=== PATIENT | female | born 1990 | race Caucasian/White ===

== ENCOUNTER 2024-05-16 13:22 | Outpatient (RCR) | payer MEDICAID, SELFPAY ==
--- NOTE | 2024-05-16 14:05 | PT.OIERPT ---
PT OP Initial Eval Patient Information Visit Reasons: SCOLIOSIS Medical Diagnosis: M41.9 Treatment Dx #1: Difficulty Walking Start of Care: 05/16/24 Smoking Status Smoking Status: Never smoker Initial Assessment Subjective: Pt is a 34 y/o female reports of chronic back pain and difficulty walking since 2 years ago. Pt had back surgery due to severe scoliosis many years ago. Pt has limitation with prolonged standing, walking, chores, self care, work duties, and performing recreational activities. Pt's ambulation is limited with a cane or 4ww. Objective: L/S AROM: all motions are 50% towards end range with pain BLE AROM: all motions are 75 % towards end range BLE MMTs: grossly 3-/5 Gait Observation: 25 ft with step to pattern without AD. Assessment: Pt demonstrate spinal mobility deficits with core weakness leading to difficulty with walking. Pt's gait is non-functional and demonstrate poor posture and overall mobility. Pt will benefit from a power w/c to improve overall independence with ADLs. 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
== END 2024-05-27 23:59 | disposition home or self-care (01) ==
LOC: CPTX 13:22
PROVIDERS: PCP Physician Assistant; Referring Provider Physician Assistant; Visit Provider Physician Assistant
DX: R26.2 Difficulty in walking, not elsewhere classified (principal); R53.1 Weakness; G89.29 Other chronic pain; M54.9 Dorsalgia, unspecified; M41.9 Scoliosis, unspecified
CPT/HCPCS: 97162

== ENCOUNTER → 2024-08-09 | Outpatient (CLI) | payer MEDICAID, SELFPAY ==
--- NOTE | 2024-08-09 12:00 | XR_ITS ---
Examination: MRI brain without intravenous contrast. Date and time of exam: August 09, 2024 1304 hours INDICATIONS: Weakness in the legs numbness in the legs headaches decreased memory over the last week Technique: Multiple axial and sagittal images of the brain obtained. Siemens high-resolution 1.5 Patricia short bore scanners utilized. Sagittal sections, T1-weighted, TR 500, TE 14, are performed. Axial sections proton-density and T2-weighted have been obtained. Inversion recovery axial images, TR 9, 260, TE 111, TI 2500. Diffusion weighted images, axial sections, TR 4800, TE 128, B value 1000 Axial sections, ADC map, TR 4800, TE 128 Findings: Enlargement of the sella turcica is not present. The optic chiasm and infundibular are not remarkable. Prepontine and interpeduncular cisterns are not enlarged. There is no localized enlargement of the medulla or stephen. Fourth ventricle and cerebellar tonsils appear normal in position. No subacute area of hemorrhage density is seen. Mass in the cerebellopontine angle region is not evident. Globes symmetrical. Orbital musculature including medial lateral rectus muscles do not exhibit abnormality. Diffusion-weighted images demonstrate no focus of restricted diffusion. Increased white matter signal punctate foci increased signal in the cerebral white matter Prominent sinusitis Mass effect upon the ventricular system is not identified. Impression: Punctate foci increased signal in the cerebral white matter consistent with demyelinating disease This patient should return for brain MRI post contrast follow-up to exclude metastatic disease
--- NOTE | 2024-08-09 12:30 | XR_ITS ---
Examination: MRI lumbar spine without contrast Date and time of exam: August 09, 2024 1304 hours INDICATIONS: Low back pain radiating down the right side beginning 3 years ago, weakness in the legs Technique: Multiple MRI axial and sagittal sections lumbar spine. Sagittal T2-weighted images, TR 3500, TE 118 T1 weighted transverse sections, TR 688 T8.5, T2-weighted sagittal sections T1 weighted sagittal sections TR 621, TE 30 T2 axial sections, TR 4, 190, TE 84. Findings: Adequate alignment lumbar vertebral bodies Moderate disc narrowing L5-S1 with disc desiccation No lumbar fracture No spondylolisthesis L5-S1 large, 10 mm extruded central disc displacing both the right and left S1 nerve roots and producing mild left L5 ganglionic compression More cephalad levels are unremarkable IMPRESSION: L5-S1 large, 10 mm, extruded central disc displacing the right and left S1 nerve roots and producing mild left L5 ganglionic compression
== END | disposition home or self-care (01) ==
PROVIDERS: PCP Physician Assistant; Referring Provider Physician Assistant; Visit Provider Physician Assistant
DX: R90.82 White matter disease, unspecified (principal); M51.27 Other intervertebral disc displacement, lumbosacral region; G95.20 Unspecified cord compression
CPT/HCPCS: 70551; 72148

== ENCOUNTER 2024-08-13 15:07 | Emergency (ER) | payer MEDICAID, SELFPAY ==
[2024-08-13 15:08] VITALS: BMI 39.4
[2024-08-13 15:36] VITALS: BP 113/75; PULSE 105; RESP 18; TEMP 36.9; O2SAT 97
--- NOTE | 2024-08-13 15:43 | PD.EDANIML ---
ED Animal Bite RME/HPI General Chief Complaint: Animal Bite Stated Complaint: DOG BITE TO LEFT ELBOW ON WEDNESDAY Time Seen by Provider: 08/13/24 15:28 Source: patient Arrival date/time: 08/13/24 15:07 34-year-old female with no known medical history presents to the emergency room with a chief complaint of swelling redness and warmth to her left elbow. Patient states she had a mild dog bite to the left elbow on Wednesday. Patient states there was no big laceration so she decided to not come in but today started feeling warm and tender. Mode of arrival: ambulatory Limitations: no limitations Related Data Previous Rx's ?Medication ?Instructions ?Recorded cephalexin 500 mg capsule 500 mg PO QID #28 caps 11/17/23 acetaminophen 500 mg tablet 500 mg PO QID PRN fever or pain 02/17/24 #20 tabs ibuprofen 800 mg tablet 800 mg PO Q8H PRN pain #20 tabs 02/17/24 amoxicillin 875 mg-potassium 1 tab PO BID 7 days #14 tabs 08/13/24 clavulanate 125 mg tablet Allergies Allergy/AdvReac Type Severity Reaction Status Date / Time chicken derived Allergy Severe Swelling Verified 08/13/24 15:08 of Lip/Tongue/Throat turkey Allergy Severe Swelling Verified 08/13/24 15:08 of Lip/Tongue/Throat pepperoni Allergy Intermediate Rash Uncoded 08/13/24 15:08 Review of Systems Review of Systems Systems Reviewed: All systems reviewed, normal except as documented Constitutional Constitutional: Reports system reviewed and no additional complaints, except as documented, Denies fatigue, Denies fever(s), Denies headache(s) and Denies weakness Eyes Eyes: Reports system reviewed and no additional complaints, except as documented, Denies blurry vision and Denies change in vision ENT Ears, Nose, Mouth, and Throat: Reports system reviewed and no additional complaints, except as documented, Denies otalgia, Denies headache(s), Denies nasal congestion, Denies throat swelling and Denies vertigo Cardiovascular Cardiovascular: Reports system reviewed and no additional complaints, except as documented, Denies chest pain, Denies dyspnea and Denies dyspnea on exertion Respiratory Respiratory: Reports system reviewed and no additional complaints, except as documented, Denies chest congestion, Denies cough, Denies dyspnea, Denies dyspnea on exertion and Denies wheezing Gastrointestinal Gastrointestinal: Reports system reviewed and no additional complaints, except as documented, Denies abdominal pain, Denies cramping, Denies nausea and Denies vomiting Genitourinary Genitourinary: Reports system reviewed and no additional complaints, except as documented Musculoskeletal Musculoskeletal: Reports arthralgias and Reports joint swelling Integumentary/Breasts Skin/Breast: Reports system reviewed and no additional complaints, except as documented and Denies wounds Neurologic Neurologic: Reports system reviewed and no additional complaints, except as documented, Denies confusion, Denies headache(s), Denies lack of coordination, Denies vertigo and Denies weakness Psychiatric Psychiatric: Reports system reviewed and no additional complaints, except as documented, Denies anxiety, Denies confusion, Denies depression, Denies paranoia, Denies suicidal ideation and Denies tactile hallucinations Endocrine Endocrine: Reports system reviewed and no additional complaints, except as documented and Denies fatigue Hematologic/Lymphatic Hematologic/Lymphatic: Reports system reviewed and no additional complaints, except as documented and Denies lymphadenopathy Allergic/Immunologic Allergic/Immunologic: Reports system reviewed and no additional complaints, except as documented, Denies throat swelling, Denies urticaria and Denies wheezing Past Medical History Past Medical History NEUROLOGIC: Negative Neurological Disorders CARDIAC: Negative Cardiac Disorders or Congestive Heart Failure RESPIRATORY: Positive Asthma, Bronchitis and Pneumonia; Negative Chronic Obstructive Pulmonary Disease (COPD) GASTROINTESTINAL: Negative Gastrointestinal Disorders GENITOURINARY: Negative Genitourinary Disorders or Renal Disease REPRODUCTIVE: Positive Previous Pregnancies MUSCULOSKELETAL: Positive Scoliosis ENDOCRINE: Positive Diabetes Mellitus Type 2 and Hypothyroidism; Negative Diabetes Mellitus Type 1 HEMATOLOGIC: Positive Anemia PSYCHO/SOCIAL: Positive Depression, Anxiety and Post Traumatic Stress Disorder OTHER HISTORY: Negative Autoimmune Disease, Blood Transfusions, MRSA, Clostridium Difficile or Cancer Family History FAMILY HISTORY: Positive Family Psychiatric Problems (Mother- anxiety, depression,PTSD), Family Respiratory Disorders (Mother COPD) and Family Cancer (Aunt breast cancer); Negative Family Cardiac Disorders, Family Gastrointestinal Problems, Family Surgery or Family Anesthesia Reaction Surgical History SURGICAL: Negative Cardiac Surgery, Endocrine Surgery, Ear Surgery, Abdominal Surgery, Nephrectomy, Joint Replacement, Neurologic Surgery or Mastectomy Social History SMOKING STATUS: Never smoker ED Exam General Limitations: Present no limitations General appearance: Present alert and in no apparent distress Head Head exam: Present atraumatic Eye Eye exam: Present normal appearance, PERRL and EOMI ENT ENT exam: Present normal exam, normal oropharynx and mucous membranes moist Neck Neck exam: Present normal inspection, full ROM and trachea midline Chest Chest inspection: Present normal inspection and symmetric chest wall rise Respiratory Respiratory exam: Present normal lung sounds bilaterally Cardiovascular Cardiovascular exam: Present regular rate, normal rhythm and normal heart sounds Abdominal Exam Abdominal exam: Present soft and normal bowel sounds Extremities Exam Extremities exam: Present normal inspection and full ROM Expanded Upper Extremity Exam Shoulder exam: Present normal inspection Arm exam: Present normal inspection Elbow exam: Present full ROM, tenderness, swelling and erythema Forearm/Wrist exam: Present normal inspection Hand exam: Present normal inspection Vascular exam: Normal capillary refill Back Exam Back exam: Present normal inspection and full ROM Neurological Exam Neurological exam: Present alert, oriented X3 and CN II-XII intact Psychiatric Psychiatric exam: Present normal affect and normal mood Skin Skin exam: Present warm, dry, intact and normal color Course Quality Measures none Vital Signs Vital signs: Vital Signs Temperature 98.5 F 08/13/24 15:36 Pulse Rate 105 H 08/13/24 15:36 Respiratory Rate 18 08/13/24 15:36 Blood Pressure 113/75 08/13/24 15:36 Pulse Oximetry (%) 97 08/13/24 15:36 Oxygen Delivery Method Room Air 08/13/24 15:36 O2 saturation 97% within normal limits Animal Bite MDM Narrative MDM Narrative:: 34-year-old female with no known medical history presents to the emergency room with a chief complaint of swelling redness and warmth to her left elbow. Patient states she had a mild dog bite to the left elbow on Wednesday. Patient states there was no big laceration so she decided to not come in but today started feeling warm and tender. Patient is hemodynamically stable and in no apparent distress. There is no fever, tachypnea,. Physical examination shows a left elbow that is swollen, warm to the touch and has erythema. There is no pus draining I am able to see the small abrasion that was caused on Wednesday there is no pus draining from it. Antibiotics are sent to the patient's pharmacy patient was discharged and educated to follow-up with primary care provider return to the emergency room for any evidence of worsening signs or symptoms Patient data External records reviewed:: [facility] previous records Clinical information provided by:: patient Social determinants that could affect healthcare access:: none Patient has the following chronic illnesses:: No chronic illness How is presenting disease/condition affected by chronic disease/condition?: no chronic disease Evaluation data The following diagnostics were reviewed and interpreted by me:: lab results and radiology exam(s) Lab and/or radiology exams considered but not ordered:: Labs and radiology exams considered and ordered Interpretation Summary: N/A Medications / Prescriptions Medications or Prescriptions considered but not ordered:: Medication given Medication administrations:: Rx given Consultations Consultation(s) initiated? (list below): No Diagnosis Differential diagnosis animal bite: bite by animal and dog bite Most likely diagnosis given after review of the tests above:: Dog bite Admission Indicated Admission indicated?: not indicated Admission Request Was there a request for admission?: No Disposition Plan Disposition Plan: Discharge Discharge Attestation Discharge Attestation: The patient and all family members were given an opportunity to ask questions and understood the discharge instructions. Discharge instructions specifically effects, indications for sooner follow up or return to the emergency department, and the expected course of current diagnosis. Patient condition: Stable Discharge Plan Plan Patient Disposition: HOME (Self Care) Disposition Comment: Stable Prescriptions/Referrals Prescriptions/Med Rec: New amoxicillin-pot clavulanate 875-125 mg tablet 1 tab PO BID 7 Days Qty: 14 0RF No Action cephalexin 500 mg capsule 500 mg PO QID Qty: 28 0RF ibuprofen 800 mg tablet 800 mg PO Q8H PRN (Reason: pain) Qty: 20 0RF acetaminophen 500 mg tablet 500 mg PO QID PRN (Reason: fever or pain) Qty: 20 0RF Problem List Clinical Impression: Dog bite Patient/Caregiver Discharge Instructions Education Materials: ED Animal Bite (General), ED Dog Bite Additional Instructions: Please follow-up with your primary care provider in the next 24 to 48 hours. Antibiotics are sent to your pharmacy please pick them up and take them as indicated. For any evidence of worsening signs or symptoms return to the emergency room immediately Print Language: Greek Stand Alone Forms: Tamara Award Info., Patient Portal Info Letter PA/PHARMACY ASSOCIATE Supervising Physician PA/MELANIE Supervising Physician: Dr Johnson
== END 2024-08-13 16:09 | disposition home or self-care (01) ==
LOC: SERX 16:35
PROVIDERS: Emergency Provider Emergency Medicine
DX: S51.052A Open bite, left elbow, initial encounter (principal); W54.0XXA Bitten by dog, initial encounter
CPT/HCPCS: 99281

== ENCOUNTER 2024-08-22 14:56 | Emergency (ER) | payer MEDICAID, SELFPAY ==
[2024-08-22 14:57] VITALS: BMI 40.8
[2024-08-22 15:09] VITALS: BP 114/77; PULSE 108; RESP 16; TEMP 37.1; O2SAT 96; BMI 40.8
--- NOTE | 2024-08-22 15:12 | XR_ITS ---
Examination: Venous duplex lower extremity sonogram, bilateral. Date and time of exam: August 22, 2024 1607 hrs. Indications: Bilateral leg swelling and pain years, worse in the right leg beginning this morning Technique: Multiple sonographic images of the deep venous system have been obtained. B-mode/2-D grayscale imaging of vascular structures and Doppler spectral analysis (waveforms) and color performed Both legs are examined. Findings: Deep venous systems do not demonstrate abnormal echogenicity. All visualized deep veins exhibit compressibility. All visualized deep veins exhibit augmentation. Impression: Negative for deep vein thrombosis
--- NOTE | 2024-08-22 15:17 | PD.EDEXREM ---
ED Extremity Problem RME/HPI General Chief complaint: Extremity Injury, Lower Stated complaint: Bilateral leg swelling x 1 day Time Seen by Provider: 08/22/24 15:06 Arrival date/time: 08/22/24 14:56 RME / HPI RME / HPI Narrative: 34-year-old female with history of type 1 diabetes, scoliosis resulting in limited mobility, and chronic back pain presents to the emergency department with complaint of right foot pain, and bilateral lower extremity swelling. Patient states that this pain is not new for her, but that it is the worst it has ever been. States that she recently had an MRI of her low back and brain which showed she might have MS. patient denies any fall or trauma. No chest pain or shortness of breath. Related Data Previous Rx's ?Medication ?Instructions ?Recorded cephalexin 500 mg capsule 500 mg PO QID #28 caps 11/17/23 acetaminophen 500 mg tablet 500 mg PO QID PRN fever or pain 02/17/24 #20 tabs ibuprofen 800 mg tablet 800 mg PO Q8H PRN pain #20 tabs 02/17/24 Allergies Allergy/AdvReac Type Severity Reaction Status Date / Time chicken derived Allergy Severe Swelling Verified 08/13/24 15:08 of Lip/Tongue/Throat turkey Allergy Severe Swelling Verified 08/13/24 15:08 of Lip/Tongue/Throat pepperoni Allergy Intermediate Rash Uncoded 08/13/24 15:08 Review of Systems Review of Systems Systems Reviewed: All systems reviewed, normal except as documented Past Medical History Past Medical History NEUROLOGIC: Negative Neurological Disorders CARDIAC: Negative Cardiac Disorders or Congestive Heart Failure RESPIRATORY: Positive Asthma, Bronchitis and Pneumonia; Negative Chronic Obstructive Pulmonary Disease (COPD) GASTROINTESTINAL: Negative Gastrointestinal Disorders GENITOURINARY: Negative Genitourinary Disorders or Renal Disease REPRODUCTIVE: Positive Previous Pregnancies MUSCULOSKELETAL: Positive Scoliosis ENDOCRINE: Positive Diabetes Mellitus Type 2 and Hypothyroidism; Negative Diabetes Mellitus Type 1 HEMATOLOGIC: Positive Anemia PSYCHO/SOCIAL: Positive Depression, Anxiety and Post Traumatic Stress Disorder OTHER HISTORY: Negative Autoimmune Disease, Blood Transfusions, MRSA, Clostridium Difficile or Cancer Family History FAMILY HISTORY: Positive Family Psychiatric Problems (Mother- anxiety, depression,PTSD), Family Respiratory Disorders (Mother COPD) and Family Cancer (Aunt breast cancer); Negative Family Cardiac Disorders, Family Gastrointestinal Problems, Family Surgery or Family Anesthesia Reaction Surgical History SURGICAL: Negative Cardiac Surgery, Endocrine Surgery, Ear Surgery, Abdominal Surgery, Nephrectomy, Joint Replacement, Neurologic Surgery or Mastectomy Social History SMOKING STATUS: Never smoker ED Exam Narrative Physical exam: Constitutional: no acute distress, age appropriate, non-toxic. Seated in power wheelchair. Eyes: PERRL, conjunctivae w/o pallor, EOMI HENT: normocephalic, atraumatic. Oral mucosa moist Respiratory Effort: no stridor, effort normal, no retractions Breath sounds: Clear bilaterally; No rales, No rhonchi, No wheezing Cardiovascular: regular rhythm, S1 and S2 normal, no murmur Musculoskeletal: Bilateral lower extremities with slight 1+ nonpitting edema. Mild tenderness of the medial right foot without any overlying skin changes or rash. DP pulses 2+ bilaterally. Sensation intact bilateral lower extremities. Skin: warm, dry; No rash Neurology: alert, oriented X 4. Normal gait. Moves all extremities spontaneously. Psychology: cooperative, normal mood Course Quality Measures none Orders Category Date Time Status US venous doppler LE BI Stat Exams 08/22/24 15:12 Taken CBC Stat Lab 08/22/24 15:16 Completed CMP [Comprehensive Metabolic Panel] Stat Lab 08/22/24 15:16 Completed PT [Prothrombin Time with INR] Stat Lab 08/22/24 15:16 Completed PTT [Partial Thromboplastin Time] Stat Lab 08/22/24 15:16 Completed HYDROcodone*/APAP 5/325 [[place] 5/325] Med 08/22/24 15:13 Discontinued 1 tab PO X1 ONE Vital Signs Vital signs: Vital Signs Temperature 98.8 F 08/22/24 15:09 Pulse Rate 108 H 08/22/24 15:09 Respiratory Rate 16 08/22/24 15:09 Blood Pressure 114/77 08/22/24 15:09 Pulse Oximetry (%) 96 08/22/24 15:09 Oxygen Delivery Method Room Air 08/22/24 15:09 Extremity Problem MDM Narrative MDM Narrative:: 34-year-old female presents with bilateral lower extremity swelling and foot pain. Differential diagnoses include DVT, chronic pain, neuropathy, cellulitis Ultrasound shows no evidence of DVT. Likely neuropathy versus chronic pain. No evidence of cellulitis or abscess on exam. Counseled follow-up with primary care. Strict return to ED precautions given. Patient data External records reviewed:: [facility] previous records Clinical information provided by:: patient Social determinants that could affect healthcare access:: none Patient has the following chronic illnesses:: Type 1 diabetes, scoliosis, chronic back pain How is presenting disease/condition affected by chronic disease/condition?: exacerbated by Evaluation data The following diagnostics were reviewed and interpreted by me:: lab results and radiology exam(s) Lab and/or radiology exams considered but not ordered:: None Interpretation Summary: CBC shows no significant leukocytosis. Mild chronic anemia. CMP shows no electrolyte abnormalities, no KAMAR. Normal LFTs Bilateral venous Doppler ultrasound: No evidence of DVT bilaterally Medications / Prescriptions Medications or Prescriptions considered but not ordered:: N/A Medication administrations:: Medication Administration History Discontinued Medications Hydrocodone Bitart/Acetaminophen (Hydrocodone/Apap 5/325 Tablet) 1 tab PO X1 ONE Stop: 08/22/24 15:14 Last Admin: 08/22/24 15:19 Dose: 1 tab Documented By: See above Consultations Consultation(s) initiated? (list below): No Diagnosis Extremity Problem Differential Diagnosis: other (See MDM section) Most likely diagnosis given after review of the tests above:: Foot pain Admission Indicated Admission indicated?: not indicated Admission Request Was there a request for admission?: No Disposition Plan Disposition Plan: Discharge Discharge Attestation Discharge Attestation: The patient and all family members were given an opportunity to ask questions and understood the discharge instructions. Discharge instructions specifically effects, indications for sooner follow up or return to the emergency department, and the expected course of current diagnosis. Patient condition: Stable Discharge Plan Plan Patient Disposition: HOME (Self Care) Prescriptions/Referrals Prescriptions/Med Rec: No Action cephalexin 500 mg capsule 500 mg PO QID Qty: 28 0RF ibuprofen 800 mg tablet 800 mg PO Q8H PRN (Reason: pain) Qty: 20 0RF acetaminophen 500 mg tablet 500 mg PO QID PRN (Reason: fever or pain) Qty: 20 0RF Referrals: No Primary/Family,Physician [Primary Care Provider] - In 1 week Problem List Clinical Impression: Foot pain Patient/Caregiver Discharge Instructions Education Materials: Understanding the Pain Response Additional Instructions: Follow-up with primary care for further evaluation and treatment of symptoms. Return to the ED for new or worsening symptoms. Print Language: Maori Stand Alone Forms: Tamara Award Info., Patient Portal Info Letter
[2024-08-22] MEDS: HYDROcodone/APAP 5/325 TABLET 1 TAB PO ×2 (15:19→18:36)
[2024-08-22 15:47] LABS: Basophils # (Auto) 0.1 Thou/mm3 (0.0-0.2); Basophils % (Auto) 0 % (0-2.5); Eosinophils # (Auto) 0.6 Thou/mm3 (0.0-0.5); Eosinophils % (Auto) 5 % (0-10); Hematocrit 36.9 % (36.0-46.0); Hemoglobin 11.4 g/dL (12.0-16.0); Immature Granulocytes % (Auto) 0 % (0-0); Immature Granulocytes Auto 0.04 Thou/mm3 (0.00-0.00); Lymphocytes # (Auto) 2.5 Thou/mm3 (1.0-4.8); Lymphocytes % (Auto) 20 % (10-50); Mean Corpuscular HGB Conc 30.9 g/dl (31.0-37.0); Mean Corpuscular Hemoglobin 23.6 pg (25.0-35.0); Mean Corpuscular Volume 76 fL (80-100); Monocytes # (Auto) 0.5 Thou/mm3 (0.0-0.8); Monocytes % (Auto) 4 % (0-12); Neutrophils % (Auto) 71 % (37-80); Nucleated Red Blood Cell % 0 /100 WBC (0); Platelet Count 341 Thou/mm3 (140-440); RDW Standard Deviation 44.4 fL (36.4-46.3); Red Blood Count 4.83 Miln/mm3 (4.00-5.20); White Blood Count 12.6 Thou/mm3 (3.6-11.0)
[2024-08-22 16:06] LABS: Alanine Aminotransferase 30 U/L (10-49); Albumin, Serum 4.4 gm/dL (3.5-5.0); Albumin/Globulin Ratio 1.3 (1.2-2.2); Alkaline Phosphatase 90 U/L (46-116); Anion Gap 11 (7-16); Aspartate Amino Transferase 43 U/L (0-34); BUN/Creatinine Ratio 11 Ratio (12-20); Bilirubin,Total 0.3 mg/dL (0.3-1.2); Blood Urea Nitrogen 8 mg/dL (9-23); Calcium 9.6 mg/dL (8.3-10.6); Calcium (Corrected) 9.6 mg/dL (8.5-10.1); Carbon Dioxide 24.8 mMol/L (20.0-31.0); Chloride 101 mMol/L (98-107); Creatinine (Component) 0.7 mg/dL (0.6-1.3); Estimated Creatinine Clearance 138.4 mL/min (>60); Globulin 3.5 gm/dL (2.3-3.5); Glucose 180 mg/dL (74-106); Osmolality,Calculated 277 (275-295); Potassium 3.8 mMol/L (3.4-5.1); Sodium 137 mMol/L (136-145); Total Protein 7.9 gm/dL (5.7-8.2); eGFR > 60 See Note
[2024-08-22 16:13] LABS: Partial Thromboplastin Time 23.3 Seconds (22.0-36.0); Prothrombin Time 10.8 Seconds (9.0-12.2)
== END 2024-08-22 19:00 | disposition home or self-care (01) ==
PROVIDERS: Physician Assistant; Emergency Provider Emergency Medicine
DX: M79.671 Pain in right foot (principal); R22.43 Localized swelling, mass and lump, lower limb, bilateral; E10.9 Type 1 diabetes mellitus without complications; D64.9 Anemia, unspecified; G89.29 Other chronic pain; M54.9 Dorsalgia, unspecified; M41.9 Scoliosis, unspecified
CPT/HCPCS: 36415; 80053; 85025; 85610; 85730; 93970; 99284; A9270

== ENCOUNTER 2024-10-18 12:44 | Emergency (ER) | payer MEDICAID, SELFPAY ==
[2024-10-18 12:58] VITALS: BP 148/88; PULSE 109; RESP 20; TEMP 37.4; O2SAT 99
[2024-10-18 13:00] VITALS: BMI 39.4
--- NOTE | 2024-10-18 13:03 | PD.EDRME ---
Rapid Medical Screening Exam RME Arrival date/time: 10/18/24 12:44 4-year-old female presents to the Emergency Department for complaint of abdominal pain and diarrhea Chief Complaint: Abdominal Pain Vital signs: Vital Signs Temperature 99.4 F 10/18/24 12:58 Pulse Rate 109 H 10/18/24 12:58 Respiratory Rate 20 10/18/24 12:58 Blood Pressure 148/88 H 10/18/24 12:58 Pulse Oximetry (%) 99 10/18/24 12:58 Oxygen Delivery Method Room Air 10/18/24 12:58
[2024-10-18 13:40] LABS: Collection Type, Urine Clean Catch
[2024-10-18 13:45] LABS: Basophils # (Auto) 0.1 Thou/mm3 (0.0-0.2); Basophils % (Auto) 0 % (0-2.5); Eosinophils # (Auto) 0.7 Thou/mm3 (0.0-0.5); Eosinophils % (Auto) 5 % (0-10); Hematocrit 36.6 % (36.0-46.0); Hemoglobin 12.1 g/dL (12.0-16.0); Immature Granulocytes % (Auto) 1 % (0-0); Immature Granulocytes Auto 0.07 Thou/mm3 (0.00-0.00); Lymphocytes # (Auto) 2.6 Thou/mm3 (1.0-4.8); Lymphocytes % (Auto) 20 % (10-50); Mean Corpuscular HGB Conc 33.1 g/dl (31.0-37.0); Mean Corpuscular Hemoglobin 25.3 pg (25.0-35.0); Mean Corpuscular Volume 76 fL (80-100); Monocytes # (Auto) 0.6 Thou/mm3 (0.0-0.8); Monocytes % (Auto) 4 % (0-12); Neutrophils # (Auto) 8.9 Thou/mm3 (1.8-7.7); Neutrophils % (Auto) 70 % (37-80); Nucleated Red Blood Cell % 0 /100 WBC (0); Platelet Count 339 Thou/mm3 (140-440); RDW Standard Deviation 49.2 fL (36.4-46.3); Red Blood Count 4.79 Miln/mm3 (4.00-5.20); White Blood Count 12.8 Thou/mm3 (3.6-11.0)
[2024-10-18 13:53] LABS: HCG Qualitative,Urine Positive
[2024-10-18 14:00] LABS: Alanine Aminotransferase 11 U/L (10-49); Albumin, Serum 4.3 gm/dL (3.5-5.0); Albumin/Globulin Ratio 1.3 (1.2-2.2); Alkaline Phosphatase 100 U/L (46-116); Anion Gap 10 (7-16); Aspartate Amino Transferase 15 U/L (0-34); BUN/Creatinine Ratio 7 Ratio (12-20); Bilirubin,Total 0.3 mg/dL (0.3-1.2); Blood Urea Nitrogen < 5 mg/dL (9-23); Calcium 8.9 mg/dL (8.3-10.6); Calcium (Corrected) 8.9 mg/dL (8.5-10.1); Carbon Dioxide 24.4 mMol/L (20.0-31.0); Chloride 104 mMol/L (98-107); Creatinine (Component) 0.7 mg/dL (0.6-1.3); Estimated Creatinine Clearance 135.8 mL/min (>60); Globulin 3.4 gm/dL (2.3-3.5); Glucose 223 mg/dL (74-106); Lipase 29 U/L (12-53); Osmolality,Calculated 279 (275-295); Potassium 3.2 mMol/L (3.4-5.1); Sodium 138 mMol/L (136-145); Total Protein 7.7 gm/dL (5.7-8.2); eGFR > 60 See Note
[2024-10-18 14:07] LABS: Bacteria,Urine 1+; Bilirubin,Urine Negative (Negative); Blood,Urine Negative (Negative); Clarity,Urine Turbid (Clear/Hazy); Color,Urine Yellow (Lt Yel-Yel); Glucose, Urine 2+ (Negative); Ketones,Urine 1+ (Negative); Leukocyte Esterase,Urine Positive (Negative); Nitrite,Urine Negative (Negative); Protein,Urine 1+ (Neg - Trace); RBC,Urine 6 /hpf (0-3); Specific Gravity,Urine 1.033 (1.001-1.035); Squamous Epithelial Cell,Urine 3 /hpf (0-5); WBC,Urine 124 /hpf (0-5)
--- NOTE | 2024-10-18 14:07 | XR_ITS ---
Examination: Complete OB ultrasound, less than 14 weeks, transabdominal Date and time of exam: October 18, 2024 1505 hours INDICATIONS: Mid abdominal pain beginning 2 days ago Technique: Obstetrical ultrasound images less than 14 weeks performed via transabdominal imaging Findings: A normal shaped single intrauterine gestation is present in the uterus. pole 1.2 cm corresponds to 7 weeks 3 days gestational age Cardiac motion 164 BPM Ultrasonographic survey of visible and placental structures unremarkable. Amniotic fluid volume appears appropriate for this estimated gestational age. Right ovary 3.2 cm arterial flow Left ovary obscured by bowel gas IMPRESSION: Viable intrauterine gestation 7 weeks 3 days.
[2024-10-18 14:18] LABS: Culture Indicated,Urine Yes
[2024-10-18 15:28] LABS: Beta HCG,Quantitative 45446 mIU/mL (<5.0)
[2024-10-18 15:46] LABS: Glucose Estimated Average 183 mg/dL (80-131)
[2024-10-18 17:11] VITALS: BP 128/87; PULSE 94; RESP 18; TEMP 36.7; O2SAT 99
--- NOTE | 2024-10-18 18:09 | EDNOTE_ITS ---
ED Abdominal Pain RME/HPI General Chief Complaint: Abdominal Pain Stated complaint: ABD PAIN X 2 DAYS, DIARRHEA Time seen by provider: 10/18/24 18:12 Arrival date/time: 10/18/24 12:44 RME / HPI RME / HPI narrative: 10/18/24 12:44 4-year-old female presents to the Emergency Department for complaint of abdominal pain and diarrhea ------ Dr. Gibbs?s Main ED Evaluation: 34yo female presents to the ED for a chief complaint of intermittent epigastric pain x 2 days. No radiation or migration. Patient states her pain has progressively gotten worse over the last 2 days, reporting it became more constant today. Patient reports associated diarrhea. Patient endorses eating a normal diet. She denies any N/V, fever, chills or any other associated symptoms. PSH includes cholecystectomy. LMP was 08/25/24. Related Data Previous Rx's ?Medication ?Instructions ?Recorded cephalexin 500 mg capsule 500 mg PO QID #28 caps 11/16 acetaminophen 500 mg tablet 500 mg PO QID PRN fever or pain 02/17/24 #20 tabs ibuprofen 800 mg tablet 800 mg PO Q8H PRN pain #20 t abs 02/17/24 vitamins no.175-iron 1 tab PO QDAY First trim mariann 10/18/24 fumarate 29 mg-folic acid 1 mg 30 days #30 t abs tablet Allergies Allergy/AdvReac Type Severity Reaction Status Date / Time chicken derived Allergy Severe Swelling Verified 08/13/24 15:08 of Lip/Tongue/Throat turkey Allergy Severe Swelling Verified 08/13/24 15:08 of Lip/Tongue/Throat pepperoni Allergy Intermediate Rash Uncoded 08/13/24 15:08 Review of Systems Review of Systems Systems Reviewed: All systems reviewed, normal except as documented Past Medical History Past Medical History NEUROLOGIC: Negative Neurological Disorders CARDIAC: Negative Cardiac Disorders or Congestive Heart Failure RESPIRATORY: Positive Asthma, Bronchitis and Pneumonia; Negative Chronic Obstructive Pulmonary Disease (COPD) GASTROINTESTINAL: Negative Gastrointestinal Disorders GENITOURINARY: Negative Genitourinary Disorders or Renal Disease REPRODUCTIVE: Positive Previous Pregnancies MUSCULOSKELETAL: Positive Scoliosis ENDOCRINE: Positive Diabetes Mellitus Type 2 and Hypothyroidism; Negative Diabetes Mellitus Type 1 HEMATOLOGIC: Positive Anemia PSYCHO/SOCIAL: Positive Depression, Anxiety and Post Traumatic Stress Disorder OTHER HISTORY: Negative Autoimmune Disease, Blood Transfusions, MRSA, Clostridium Difficile or Cancer Family History FAMILY HISTORY: Positive Family Psychiatric Problems (Mother- anxiety, depression,PTSD), Family Respiratory Disorders (Mother COPD) and Family Cancer (Aunt breast cancer); Negative Family Cardiac Disorders, Family Gastrointestinal Problems, Family Surgery or Family Anesthesia Reaction Surgical History SURGICAL: Negative Cardiac Surgery, Endocrine Surgery, Ear Surgery, Abdominal Surgery, Nephrectomy, Joint Replacement, Neurologic Surgery or Mastectomy Social History SMOKING STATUS: Never smoker ED Exam Narrative Physical exam: GENERAL APPEARANCE: alert and oriented x 4, mildly obese, well-developed, well- nourished, no acute distress VITALS: All vitals were reviewed and the pulse ox is 99% on room air, which is normal according to my interpretation. HEENT: Normocephalic, atraumatic; pupils equal, round, reactive to light; EOMI; mucous membranes pink, moist; oropharynx clear NECK: Supple LUNGS: CTABL; no wheezes, no rales, no rhonchi HEART: Regular rate, regular rhythm; normal S1, S2; no murmurs ABDOMEN: non distended; normal BS; soft, mild epigastric tenderness, diastasis; no RLQ tenderness on deep palpation, no guarding, no rebound, no rigidity; no masses, no organomegaly, no hernia BACK: no CVA tenderness EXTREMITIES: atraumatic; no edema NEUROLOGIC: awake; alert and oriented x4; cranial nerves II-XII grossly intact; no focal sensory or motor deficits PSYCHIATRIC: appropriate mood and affect SKIN: warm, dry, normal color; no rashes Course Quality Measures none Orders Category Date Time Status US OB <= 14 weeks fetus Stat Exams 10/18/24 14:07 Completed A1C [Glycohemoglobin w (eAG)] Stat Lab 10/18/24 13:29 Completed Beta HCG,Quantitative Stat Lab 10/18/24 13:29 Completed CBC Stat Lab 10/18/24 13:29 Completed Comprehensive Metabolic Panel Stat Lab 10/18/24 13:29 Completed HCG Qualitative,Urine Stat Lab 10/18/24 13:33 Completed Lipase Stat Lab 10/18/24 13:29 Completed UA, C/S IF [Urinalysis, C/S if Indicated] Stat Lab 10/18/24 13:33 Completed Urine Culture Stat Lab 10/18/24 13:33 Received Vital Signs Vital signs: Vital Signs Temperature 99.4 F 10/18/24 12:58 Pulse Rate 109 H 10/18/24 12:58 Respiratory Rate 20 10/18/24 12:58 Blood Pressure 148/88 H 10/18/24 12:58 Pulse Oximetry (%) 99 10/18/24 12:58 Oxygen Delivery Method Room Air 10/18/24 12:58 Abdominal Pain MDM MDM Narrative MDM Narrative:: Scribe Attestation: 10/18/24 - Anika Turner am scribing for and in the presence of Dr. Gibbs. I discussed results with the patient and informed her she was . I advised the patient to follow-up with Dr. Handy, our GI, as an outpatient regarding her symptoms, as well as to schedule a follow-up appointment with our PROVIDER RELATIONS SPECIALIST, Dr. Lance. I sent a prescription for multivitamins to her pharmacy. Patient data External records reviewed:: [facility] previous records (Per chart review, patient has no relevant previous ED visits to this facility.) Clinical information provided by:: patient Social determinants that could affect healthcare access:: none Patient has the following chronic illnesses:: none How is presenting disease/condition affected by chronic disease/condition?: no chronic disease Evaluation data The following diagnostics were reviewed and interpreted by me:: lab results Lab and/or radiology exams considered but not ordered:: none Interpretation Summary: Labs are within normal limits. HCG is positive. ----- [facility] Report Signed Patient: CAROLYN COTA Record#: [id number] Birthdate: 1990 Age/Sex: 34 / F Location: [facility] Attending Dr: Ordering Physician: Arnulfo CROWDER)Valeriy NP Date of Service: 10/18/24 Procedure(s): US OB <= 14 weeks fetus Accession Number(s): [id number] cc: Valeriy Arredondo NP, NP; Maria Guadalupe Bernal PA-C; Himanshu Ta MD~ Examination: Complete OB ultrasound, less than 14 weeks, transabdominal Date and time of exam: October 18, 2024 1505 hours INDICATIONS: Mid abdominal pain beginning 2 days ago Technique: Obstetrical ultrasound images less than 14 weeks performed via transabdominal imaging Findings: A normal shaped single intrauterine gestation is present in the uterus. pole 1.2 cm corresponds to 7 weeks 3 days gestational age Cardiac motion 164 BPM Ultrasonographic survey of visible and placental structures unremarkable. Amniotic fluid volume appears appropriate for this estimated gestational age. Right ovary 3.2 cm arterial flow Left ovary obscured by bowel gas IMPRESSION: Viable intrauterine gestation 7 weeks 3 days. Dictated By: Himanshu Ta MD Signed By: <Electronically signed by Himanshu Ta MD in OV> 10/18/24 1548 Medications / Prescriptions Medications or Prescriptions considered but not ordered:: none Medication administrations:: none Consultations Consultation(s) initiated? (list below): No Diagnosis Differential diagnosis abdominal pain: acute appendicitis and other (gastritis, GERD, viral diarrhea, bacterial diarrhea, ) Most likely diagnosis given after review of the tests above:: see clinical impression below Admission Indicated Admission indicated?: not indicated Admission Request Was there a request for admission?: No Disposition Plan Disposition Plan: Discharge Discharge Attestation Discharge Attestation: The patient and all family members were given an opportunity to ask questions and understood the discharge instructions. Discharge instructions specifically effects, indications for sooner follow up or return to the emergency department, and the expected course of current diagnosis. Patient condition: Stable Discharge Plan Plan Patient Disposition: HOME (Self Care) Disposition Comment: Stable for discharge home Patient condition on transfer: Stable Prescriptions/Referrals Prescriptions/Med Rec: New PNV no.175-iron fum-folic acid 29-1 mg tablet 1 tab PO QDAY 30 Days Qty: 30 0RF No Action cephalexin 500 mg capsule 500 mg PO QID Qty: 28 0RF ibuprofen 800 mg tablet 800 mg PO Q8H PRN (Reason: pain) Qty: 20 0RF acetaminophen 500 mg tablet 500 mg PO QID PRN (Reason: fever or pain) Qty: 20 0RF Referrals: [facility] ([facility])Ute MD [Physician] - In 1 week (First trimester ) Maria Guadalupe Bernal PA-C [Primary Care Provider] - In 1 week Yanira Handy MD [Physician] - In 1 week (We are referring you to Dr. Handy because of your epigastric pain, and your normal blood work and absence of gallbladder. I am worried about reflux or maybe even gastritis.) Problem List Clinical Impression: Acute epigastric pain, First trimester , Diarrhea Patient/Caregiver Discharge Instructions Discharge Activity: activity as tolerated Education Materials: First Trimester, ED Diarrhea, Unknown Cause, ED Diet for Vomiting or ..., ED Epigastric Pain (Uncertain Cause) Additional Instructions: Please return to the emergency department if you have any worsening or any further medical problems and we will help you. Otherwise you should follow-up with your primary care doctor within the next several days I have given you the number for Dr. Handy. Dr. Handy is our german teacher on-call for the ER. Please give his office a call and make a follow-up appointment as you may or may not need endoscopy to rule out gastritis or evidence of GERD or even peptic ulcer disease. I have also given you the number for Dr. Ryan. Dr Lance is our PROVIDER RELATIONS SPECIALIST doctor on-call for the ER. Please give her office a call and make it a follow-up appointment. Just let her know that you have a new diagnosis of . There is a prescription waiting for you at the pharmacy. This will be the vitamins and you take 1 tab every morning. Print Language: Congolese Stand Alone Forms: Tamara Award Info., Patient Portal Info Letter
== END 2024-10-18 18:37 | disposition home or self-care (01) ==
PROVIDERS: Nurse Practitioner Primary Care; Emergency Provider Emergency Medicine; PCP Physician Assistant
DX: O99.891 Other specified diseases and conditions complicating pregnancy (principal); R10.13 Epigastric pain; R19.7 Diarrhea, unspecified; Z3A.01 Less than 8 weeks gestation of pregnancy
CPT/HCPCS: 36415; 76801; 80053; 81001; 81025; 83036; 83690; 84702; 85025; 87086; 99284

== ENCOUNTER 2025-03-03 14:03 | Observation (INO) | payer MEDICAID, SELFPAY ==
[2025-03-03] VITALS (13 sets, daily range): BP systolic 117; BP diastolic 68; PULSE 96–117; RESP 18–97; TEMP 36.6; O2SAT 96–98; BMI 37.1
--- NOTE | 2025-03-03 14:59 | XR_ITS ---
Examination: Complete OB ultrasound greater than 14 weeks Date and time of exam: March 03, 2025, 1452 hrs. Indications: Pelvic pressure and cramping today Findings: Viable intrauterine single fetus with single amniotic sac presentation breech. Cardiac motion 164 BPM. Placenta posterior grade 1. Umbilical cord insertion seen. Amniotic fluid index 9.3 cm. Ovaries obscured by the fetus.. Composite estimated gestational age based on BPD, head circumference, abdominal circumference, femur length is 27 weeks 0 days, estimated weight 1011.9 g. Survey of intracranial anatomy, spinal anatomy, abdominal anatomy, four-chamber heart performed with no abnormalities identified. Impression: Viable intrauterine gestation breech presentation..
[2025-03-03 15:54] LABS: Collection Type, Urine Clean Catch
[2025-03-03 16:03] LABS: Basophils # (Auto) 0.0 Thou/mm3 (0.0-0.2); Basophils % (Auto) 0 % (0-2.5); Eosinophils # (Auto) 0.3 Thou/mm3 (0.0-0.5); Eosinophils % (Auto) 3 % (0-10); Hematocrit 32.0 % (36.0-46.0); Hemoglobin 10.5 g/dL (12.0-16.0); Immature Granulocytes Auto 0.03 Thou/mm3 (0.00-0.00); Lymphocytes # (Auto) 1.8 Thou/mm3 (1.0-4.8); Lymphocytes % (Auto) 18 % (10-50); Mean Corpuscular HGB Conc 32.8 g/dl (31.0-37.0); Mean Corpuscular Hemoglobin 26.4 pg (25.0-35.0); Mean Corpuscular Volume 81 fL (80-100); Monocytes # (Auto) 0.5 Thou/mm3 (0.0-0.8); Monocytes % (Auto) 5 % (0-12); Neutrophils # (Auto) 7.2 Thou/mm3 (1.8-7.7); Neutrophils % (Auto) 74 % (37-80); Nucleated Red Blood Cell # 0.00 Thou/mm3 (0.00-0.00); Nucleated Red Blood Cell % 0 /100 WBC (0); Platelet Count 240 Thou/mm3 (140-440); RDW Standard Deviation 42.1 fL (36.4-46.3); Red Blood Count 3.97 Miln/mm3 (4.00-5.20); White Blood Count 9.8 Thou/mm3 (3.6-11.0)
[2025-03-03 16:39] LABS: Glucose Estimated Average 148 mg/dL (80-131); Hemoglobin A1C 6.8 % Hgb (4.8-6.0)
[2025-03-03 16:45] LABS: Bacteria,Urine Rare; Bilirubin,Urine Negative (Negative); Blood,Urine 1+ (Negative); Clarity,Urine Turbid (Clear/Hazy); Color,Urine Yellow (Lt Yel-Yel); Glucose, Urine 1+ (Negative); Ketones,Urine 2+ (Negative); Leukocyte Esterase,Urine Positive (Negative); Nitrite,Urine Negative (Negative); PH,Urine 6.0 (5.0-7.0); Protein,Urine 1+ (Neg - Trace); RBC,Urine 21 /hpf (0-3); Specific Gravity,Urine 1.029 (1.001-1.035); Squamous Epithelial Cell,Urine 13 /hpf (0-5); Urobilinogen,Urine 2.0 mg/dL (0.0-1.0); WBC,Urine 425 /hpf (0-5)
[2025-03-03 16:50] LABS: Alanine Aminotransferase 9 U/L (10-49); Albumin, Serum 3.8 gm/dL (3.5-5.0); Albumin/Globulin Ratio 1.4 (1.2-2.2); Alkaline Phosphatase 113 U/L (46-116); Anion Gap 12 (7-16); Aspartate Amino Transferase 12 U/L (0-34); BUN/Creatinine Ratio 10 Ratio (12-20); Bilirubin,Total 0.2 mg/dL (0.3-1.2); Blood Urea Nitrogen < 5 mg/dL (9-23); Calcium 9.1 mg/dL (8.3-10.6); Calcium (Corrected) 9.3 mg/dL (8.5-10.1); Carbon Dioxide 20.7 mMol/L (20.0-31.0); Chloride 106 mMol/L (98-107); Creatinine (Component) 0.5 mg/dL (0.6-1.3); Estimated Creatinine Clearance 188.8 mL/min (>60); Globulin 2.7 gm/dL (2.3-3.5); Glucose 128 mg/dL (74-106); Osmolality,Calculated 276 (275-295); Potassium 3.1 mMol/L (3.4-5.1); Sodium 139 mMol/L (136-145); Total Protein 6.5 gm/dL (5.7-8.2); eGFR > 60 See Note
[2025-03-03 16:57] LABS: Syphilis Nonreactive (Nonreactive)
[2025-03-03 17:13] LABS: HIV (1&2) Antibody Rapid Non-Reactive
[2025-03-03 18:57] LABS: Chlamydia trachomatis PCR Negative (Not Detect); Neisseria Gonorrhoeae DNA PCR Negative (Not Detect); Trichomonas Negative (Negative)
[2025-03-04 21:55] LABS: Hepatitis B Surface Antigen Non Reactive (Non React); Rubella, IgG Antibody Reactive (Immune)
== END 2025-03-03 17:15 | disposition home or self-care (01) ==
PROVIDERS: Admitting Provider Obstetrics & Gynecology; PCP Family Medicine; Visit Provider Obstetrics & Gynecology
DX: O26.892 Other specified pregnancy related conditions, second trimester (principal); Z3A.27 27 weeks gestation of pregnancy; R10.2 Pelvic and perineal pain; O09.32 Supervision of pregnancy with insufficient antenatal care, second trimester; O32.1XX0 Maternal care for breech presentation, not applicable or unspecified
CPT/HCPCS: 36415; 59025; 59899; 76805; 80053; 81001; 83036; 85025; 86703; 86762; 86780; 86850; 86900; 86901; 87086; 87186; 87340; 87491; 87591; 87661; G0378; A9270

== ENCOUNTER 2025-04-05 17:32 | Emergency (ER) | payer MEDICAID, SELFPAY ==
[2025-04-05 17:32] VITALS: BMI 38.6
[2025-04-05 18:13] VITALS: BP 106/70; PULSE 108; RESP 19; TEMP 36.7; O2SAT 98
[2025-04-05 19:03] LABS: Basophils # (Auto) 0.0 Thou/mm3 (0.0-0.2); Basophils % (Auto) 0 % (0-2.5); Eosinophils # (Auto) 0.3 Thou/mm3 (0.0-0.5); Eosinophils % (Auto) 3 % (0-10); Hematocrit 33.8 % (36.0-46.0); Hemoglobin 11.0 g/dL (12.0-16.0); Immature Granulocytes Auto 0.05 Thou/mm3 (0.00-0.00); Lactate (Lactic Acid) 1.4 mMol/L (0.4-2.0); Lymphocytes # (Auto) 2.1 Thou/mm3 (1.0-4.8); Lymphocytes % (Auto) 19 % (10-50); Mean Corpuscular HGB Conc 32.5 g/dl (31.0-37.0); Mean Corpuscular Hemoglobin 25.7 pg (25.0-35.0); Mean Corpuscular Volume 79 fL (80-100); Monocytes # (Auto) 0.6 Thou/mm3 (0.0-0.8); Monocytes % (Auto) 6 % (0-12); Neutrophils # (Auto) 8.0 Thou/mm3 (1.8-7.7); Neutrophils % (Auto) 72 % (37-80); Nucleated Red Blood Cell # 0.00 Thou/mm3 (0.00-0.00); Nucleated Red Blood Cell % 0 /100 WBC (0); Platelet Count 329 Thou/mm3 (140-440); RDW Standard Deviation 44.4 fL (36.4-46.3); Red Blood Count 4.28 Miln/mm3 (4.00-5.20); White Blood Count 11.2 Thou/mm3 (3.6-11.0)
--- NOTE | 2025-04-05 19:24 | EDNOTE_ITS ---
ED Female Urogenital RME/HPI General Chief complaint: Back Pain/Injury Stated complaint: 29WK PREG, LEFT SIDE BACK PAIN WORSENING Time Seen by Provider: 04/05/25 18:24 Arrival date/time: 04/05/25 17:32 35F with history of asthma, HTN, and gestational DM and hypothyroidism presents to ED with 2 months of worsening dysuria and L flank pain. Patient was here for initial presentation and was given metronidazole, which did not help. Patient followed up with outpatient hearing officer who also gave metronidazole. UC from initial visit grew Group B strep. Patient has also had 2 trials of clotrimazole cream w/o improvement. Limitations: no limitations Related Data Home Medications ?Medication ?Instructions ?Recorded ?Confirmed aspirin 81 mg tablet,delayed 81 mg PO QDAY 03/03/25 release (Adult Aspirin Regimen) levothyroxine 150 mcg tablet 150 mcg PO .QD 03/03/25 0 03/03/25 Previous Rx's ?Medication ?Instructions ?Recorded blood sugar diagnostic (Blood #50 ea 03/03/25 Glucose Test strips) blood-glucose meter #1 ea 03/03/25 lancets #200 ea 03/03/25 vits no.126-ferrous fum 1 tab PO QDAY 90 days #90 tabs 03/03/25 28 mg iron-folic acid 800 mcg tablet (Classic ) cephalexin 500 mg capsule 500 mg PO QID 10 days #40 ca ps 04/05/25 tioconazole 6.5 % vaginal ointment 1 ea .Route QDAY #4 .6 grams 04/05/25 (1-Day) Allergies Allergy/AdvReac Type Severity Reaction Status Date / Time chicken derived Allergy Severe Swelling Verified 04/05/25 17:35 of Lip/Tongue/Throat turkey Allergy Severe Swelling Verified 04/05/25 17:35 of Lip/Tongue/Throat pepperoni Allergy Intermediate Rash Uncoded 03/03/25 14:26 Review of Systems Review of Systems Systems Reviewed: All systems reviewed, normal except as documented Genitourinary Genitourinary: Reports as per HPI, Reports dysuria and Reports flank pain Past Medical History Past Medical History NEUROLOGIC: Negative Neurological Disorders CARDIAC: Negative Cardiac Disorders or Congestive Heart Failure RESPIRATORY: Positive Asthma, Bronchitis and Pneumonia; Negative Chronic Obstructive Pulmonary Disease (COPD) GASTROINTESTINAL: Negative Gastrointestinal Disorders GENITOURINARY: Negative Genitourinary Disorders or Renal Disease REPRODUCTIVE: Positive Previous Pregnancies MUSCULOSKELETAL: Positive Scoliosis ENDOCRINE: Positive Diabetes Mellitus Type 2 and Hypothyroidism; Negative Diabetes Mellitus Type 1 HEMATOLOGIC: Positive Anemia PSYCHO/SOCIAL: Positive Depression, Anxiety and Post Traumatic Stress Disorder OTHER HISTORY: Negative Autoimmune Disease, Blood Transfusions, MRSA, Clostridium Difficile or Cancer Family History FAMILY HISTORY: Positive Family Psychiatric Problems (Mother- anxiety, depressio n,PTSD), Family Respiratory Disorders (Mother COPD) and Family Cancer (Aunt breast cancer); Negative Family Cardiac Disorders, Family Gastrointestinal Problems, Family Surgery or Family Anesthesia Reaction Surgical History SURGICAL: Negative Cardiac Surgery, Endocrine Surgery, Ear Surgery, Abdominal Surgery, Nephrectomy, Joint Replacement, Neurologic Surgery, Mastectomy or Section Social History SMOKING STATUS: Never smoker ED Exam General Limitations: Present no limitations General appearance: Present alert and in no apparent distress Head Head exam: Present atraumatic Neck Neck exam: Present normal inspection, full ROM and trachea midline Chest Chest inspection: Present normal inspection and symmetric chest wall rise Neurological Exam Neurological exam: Present alert and oriented X3 Psychiatric Psychiatric exam: Present normal affect and normal mood Skin Skin exam: Present warm, dry, intact and normal color Course Quality Measures none Orders Category Date Time Status US retroperitoneal comp Stat Exams 04/05/25 19:59 Completed CBC Stat Lab 04/05/25 18:57 Completed CMP [Comprehensive Metabolic Panel] Stat Lab 04/05/25 18:57 Completed Lactate (Lactic Acid) Stat Lab 04/05/25 18:57 Completed Procalcitonin Stat Lab 04/05/25 18:57 Completed Urinalysis Stat Lab 04/05/25 18:53 Completed Urine Culture Stat Lab 04/05/25 18:53 Received Acetaminophen Tab [Tylenol ES Tab] Med 04/05/25 19:39 Discontinued 1,000 mg PO X1 ONE Meclizine HCl [Antivert] Med 04/05/25 21:34 Discontinued 25 mg PO X1 ONE cefTRIAXone [Rocephin] 1,000 mg Med 04/05/25 19:39 Discontinued Lidocaine 1% 20 ml [Xylocaine 1% 20 ML] 2.1 ml IM X1 Vital Signs Vital signs: Vital Signs Temperature 98.1 F 04/05/25 18:13 Pulse Rate 108 H 04/05/25 18:13 Respiratory Rate 19 04/05/25 18:13 Blood Pressure 106/70 04/05/25 18:13 Pulse Oximetry (%) 98 04/05/25 18:13 Oxygen Delivery Method Room Air 04/05/25 18:13 O2 at 98% on RA and WNLs Urogenital - Female MDM Narrative MDM Narrative:: 35F with history of asthma, HTN, and gestational DM and hypothyroidism presents to ED with 2 months of worsening dysuria and L flank pain. Patient was here for initial presentation and was given metronidazole, which did not help. Patient followed up with outpatient hearing officer who also gave metronidazole. UC from initial visit grew Group B strep. Patient has also had 2 trials of clotrimazole cream w/o improvement. Physical exam reveals uncomfortable female. Patient is afebrile and alert. OB RN from upstairs came and did FHT on patient and states is fine. Patient denies pelvic pain and vaginal bleeding. Minimal leukocytosis but no gross anemia. CMP unremarkable. Procal/lactate normal. UA suggests UTI and there's also yeast. Will try different azole from for yeast infection. Spoke to Dr. Dickens, OB, who recommends Keflex for presumed Group B strep. While in ED, patient experienced some dizziness. Upon reassessment, CN II-XII grossly intact. Speech and gait normal. Patient declined observation period for dizziness improvement. Patient data External records reviewed:: [facility] previous records Clinical information provided by:: patient Social determinants that could affect healthcare access:: none Patient has the following chronic illnesses:: asthma, HTN, and gestational DM and hypothyroidism How is presenting disease/condition affected by chronic disease/condition?: exacerbated by Evaluation data The following diagnostics were reviewed and interpreted by me:: lab results Lab and/or radiology exams considered but not ordered:: ordered Interpretation Summary: above Medications / Prescriptions Medications or Prescriptions considered but not ordered:: ordered Medication administrations:: Medication Administration History Discontinued Medications Acetaminophen (Acetaminophen 500 Mg Tablet) 1,000 mg PO X1 ONE Stop: 04/05/25 19:40 Last Admin: 04/05/25 20:06 Dose: 1,000 mg Documented By: Ceftriaxone Sodium 1,000 mg/ (Lidocaine HCl 2.1 ml) 0 mg IM X1 ONE Stop: 04/05/25 19:40 Last Admin: 04/05/25 20:05 Dose: 1,000 mg Documented By: Meclizine HCl (Meclizine Hcl 25 Mg Tablet) 25 mg PO X1 ONE Stop: 04/05/25 21:35 Last Admin: 04/05/25 22:06 Dose: 25 mg Documented By: above Consultations Consultation(s) initiated? (list below): Yes Diagnosis Urogenital Female Differential Diagnosis: urinary tract infection, bacterial vaginosis, trichomoniasis, cervicitis, ovarian cyst, vaginitis, ruptured ovarian cyst, cyst of Bartholin's gland, cystitis, dysmenorrhea and other (GBS during , yeast infection) Most likely diagnosis given after review of the tests above:: GBS during , yeast infection Admission Indicated Admission indicated?: not indicated Admission Request Was there a request for admission?: No Disposition Plan Disposition Plan: Discharge Discharge Attestation Discharge Attestation: The patient and all family members were given an opportunity to ask questions and understood the discharge instructions. Discharge instructions specifically effects, indications for sooner follow up or return to the emergency department, and the expected course of current diagnosis. Patient condition: Stable Discharge Plan Plan Patient Disposition: HOME (Self Care) Discharge Disposition comment: Stable Prescriptions/Referrals Prescriptions/Med Rec: New cephalexin 500 mg capsule 500 mg PO QID 10 Days Qty: 40 0RF tioconazole [1-Day] 6.5 % ointment 1 ea .Route QDAY Qty: 4.6 0RF Rx Instructions: 1 application No Action aspirin [Adult Aspirin Regimen] 81 mg tablet,delayed release (DR/EC) 81 mg PO QDAY levothyroxine 150 mcg tablet 150 mcg PO .QD Classic 28 mg iron- 800 mcg tablet 1 tab PO QDAY 90 Days Qty: 90 6RF (DME) Blood Glucose Test Strip See Rx Instructions .Route Qty: 50 0RF Rx Instructions: As directed, 4 times a day (DME) lancets Misc See Rx Instructions .Route Qty: 200 0RF Rx Instructions: As directed 4 times a day (DME) blood-glucose meter Kit See Rx Instructions .Route Qty: 1 0RF Rx Instructions: As directed, 4 times a day Referrals: Felipe Hampton MD [Primary Care Provider, Family Practice] - In 1 week Problem List Clinical Impression: Group B streptococcal infection during , Yeast infection Patient/Caregiver Discharge Instructions Education Materials: Treating Group B Strep, Candidiasis Vaginal Additional Instructions: Please follow-up with PCP/OBYGN within 24-48 hours and return immediately if symptoms worsen. Follow-up with urine culture results on patient portal or with OBGYN. Print Language: Taiwanese Stand Alone Forms: Patient Portal Info Letter PA/ADMINISTRATIVE AIDE Supervising Physician PA/ADMINISTRATIVE AIDE Supervising Physician: Dr. Newton
[2025-04-05 19:33] LABS: Alanine Aminotransferase < 7 U/L (10-49); Albumin, Serum 3.8 gm/dL (3.5-5.0); Albumin/Globulin Ratio 1.4 (1.2-2.2); Alkaline Phosphatase 110 U/L (46-116); Anion Gap 12 (7-16); Aspartate Amino Transferase 10 U/L (0-34); BUN/Creatinine Ratio 10 Ratio (12-20); Bilirubin,Total 0.2 mg/dL (0.3-1.2); Blood Urea Nitrogen 5 mg/dL (9-23); Calcium 8.8 mg/dL (8.3-10.6); Calcium (Corrected) 9.0 mg/dL (8.5-10.1); Carbon Dioxide 20.4 mMol/L (20.0-31.0); Chloride 106 mMol/L (98-107); Creatinine (Component) 0.5 mg/dL (0.6-1.3); Estimated Creatinine Clearance 186.1 mL/min (>60); Globulin 2.8 gm/dL (2.3-3.5); Glucose 171 mg/dL (74-106); Osmolality,Calculated 276 (275-295); Potassium 3.8 mMol/L (3.4-5.1); Procalcitonin < 0.04 ng/ml (0.0-0.49); Sodium 138 mMol/L (136-145); Total Protein 6.6 gm/dL (5.7-8.2); eGFR > 60 See Note
--- NOTE | 2025-04-05 19:59 | XR_ITS ---
Examination: Retroperitoneal ultrasound, complete Technique: Multiple high resolution grayscale images of the retroperitoneum obtained, including kidneys and bladder. Exam date and time: April 05, 2025, 2030 hours INDICATIONS: Bilateral flank pain beginning 2 months ago, 29-week FINDINGS: Right kidney 10.6 cm renal cortex 1.8 cm Left kidney 10.5 cm renal cortex 1.7 cm No renal calculi No hydronephrosis Contracted urinary bladder, no bladder mass IMPRESSION: No renal calculi or hydronephrosis
[2025-04-05 20:01] LABS: Collection Type, Urine Clean Catch
[2025-04-05] MEDS: cefTRIAXone 1,000 MG, LIDOCAINE 1% 20 ML 2.1 ML IM (20:05)
[2025-04-05] MEDS: ACETAMINOPHEN 500 MG TABLET 1000 MG PO (20:06)
[2025-04-05 20:11] LABS: Bilirubin,Urine Negative (Negative); Blood,Urine Trace (Negative); Budding Yeast,Urine Present; Clarity,Urine Turbid (Clear/Hazy); Color,Urine Yellow (Lt Yel-Yel); Glucose, Urine 4+ (Negative); Ketones,Urine Negative (Negative); Leukocyte Esterase,Urine Positive (Negative); Nitrite,Urine Negative (Negative); PH,Urine 6.5 (5.0-7.0); Protein,Urine Trace (Neg - Trace); RBC,Urine 17 /hpf (0-3); Specific Gravity,Urine 1.011 (1.001-1.035); Squamous Epithelial Cell,Urine 12 /hpf (0-5); Urobilinogen,Urine Negative mg/dL (0.0-1.0); WBC,Urine 579 /hpf (0-5)
[2025-04-05 21:29] VITALS: BP 108/69; PULSE 100; RESP 17; TEMP 36.8; O2SAT 97
[2025-04-05] MEDS: MECLIZINE HCL 25 MG TABLET PO (22:06)
== END 2025-04-05 22:11 | disposition home or self-care (01) ==
PROVIDERS: Physician Assistant; Emergency Provider Emergency Medicine; PCP Family Medicine
DX: O99.820 Streptococcus B carrier state complicating pregnancy (principal); B95.1 Streptococcus, group B, as the cause of diseases classified elsewhere; O23.593 Infection of other part of genital tract in pregnancy, third trimester; B37.31 Acute candidiasis of vulva and vagina; Z3A.29 29 weeks gestation of pregnancy
CPT/HCPCS: 36415; 76770; 80053; 81001; 83605; 84145; 85025; 87040; 87086; 87186; 96372; 99283; J0696; J3490; A9270

== ENCOUNTER 2025-05-15 10:12 | Inpatient (IN) | payer MEDICAID, SELFPAY ==
[2025-05-15] VITALS (128 sets, daily range): BP systolic 0–138; BP diastolic 0–84; PULSE 91–137; RESP 18–99; TEMP 36.6–36.8; O2SAT 89–100; BMI 39.4
[2025-05-15] MEDS: SODIUM CHLORIDE 0.9% 1000 ML 1,000 ML 125 ML IV (11:20)
[2025-05-15 11:33] LABS: Collection Type, Urine Clean Catch
[2025-05-15 11:35] LABS: Basophils # (Auto) 0.0 Thou/mm3 (0.0-0.2); Basophils % (Auto) 0 % (0-2.5); Eosinophils # (Auto) 0.3 Thou/mm3 (0.0-0.5); Eosinophils % (Auto) 2 % (0-10); Hematocrit 36.9 % (36.0-46.0); Hemoglobin 12.1 g/dL (12.0-16.0); Immature Granulocytes Auto 0.05 Thou/mm3 (0.00-0.00); Lymphocytes # (Auto) 2.0 Thou/mm3 (1.0-4.8); Lymphocytes % (Auto) 17 % (10-50); Mean Corpuscular HGB Conc 32.8 g/dl (31.0-37.0); Mean Corpuscular Hemoglobin 25.8 pg (25.0-35.0); Mean Corpuscular Volume 79 fL (80-100); Monocytes # (Auto) 0.4 Thou/mm3 (0.0-0.8); Monocytes % (Auto) 3 % (0-12); Neutrophils # (Auto) 8.7 Thou/mm3 (1.8-7.7); Neutrophils % (Auto) 76 % (37-80); Nucleated Red Blood Cell # 0.00 Thou/mm3 (0.00-0.00); Nucleated Red Blood Cell % 0 /100 WBC (0); Platelet Count 308 Thou/mm3 (140-440); RDW Standard Deviation 44.1 fL (36.4-46.3); Red Blood Count 4.69 Miln/mm3 (4.00-5.20); White Blood Count 11.4 Thou/mm3 (3.6-11.0)
[2025-05-15 11:41] LABS: Bacteria,Urine 1+; Bilirubin,Urine Negative (Negative); Blood,Urine Trace (Negative); Color,Urine Yellow (Lt Yel-Yel); Glucose, Urine 1+ (Negative); Ketones,Urine 1+ (Negative); Leukocyte Esterase,Urine Positive (Negative); Nitrite,Urine Negative (Negative); PH,Urine 6.0 (5.0-7.0); Protein,Urine Trace (Neg - Trace); RBC,Urine 37 /hpf (0-3); Specific Gravity,Urine 1.014 (1.001-1.035); Squamous Epithelial Cell,Urine 22 /hpf (0-5); Urobilinogen,Urine Negative mg/dL (0.0-1.0); WBC,Urine 689 /hpf (0-5)
[2025-05-15 11:43] LABS: Clarity,Urine Hazy (Clear/Hazy)
[2025-05-15 11:48] LABS: Amphetamine/Metham Scrn,Ur OB Negative (Negative); Benzoylecgonine Screen, Ur OB Negative (Negative); Opiate Screen,Urine OB Negative (Negative); THC Screen,Urine OB Negative (Negative)
[2025-05-15 12:04] LABS: Alanine Aminotransferase 7 U/L (10-49); Albumin, Serum 4.2 gm/dL (3.5-5.0); Albumin/Globulin Ratio 1.6 (1.2-2.2); Alkaline Phosphatase 125 U/L (46-116); Anion Gap 13 (7-16); Aspartate Amino Transferase 13 U/L (0-34); BUN/Creatinine Ratio 14 Ratio (12-20); Bilirubin,Total 0.2 mg/dL (0.3-1.2); Blood Urea Nitrogen 7 mg/dL (9-23); Calcium 8.7 mg/dL (8.3-10.6); Calcium (Corrected) 8.7 mg/dL (8.5-10.1); Carbon Dioxide 18.5 mMol/L (20.0-31.0); Chloride 106 mMol/L (98-107); Creatinine (Component) 0.5 mg/dL (0.6-1.3); Estimated Creatinine Clearance 188.3 mL/min (>60); Globulin 2.7 gm/dL (2.3-3.5); Glucose 159 mg/dL (74-106); Osmolality,Calculated 274 (275-295); Potassium 4.3 mMol/L (3.4-5.1); Sodium 137 mMol/L (136-145); Total Protein 6.9 gm/dL (5.7-8.2); eGFR > 60 See Note
[2025-05-15 12:10] LABS: Syphilis Nonreactive (Nonreactive)
--- NOTE | 2025-05-15 12:24 | XR_ITS ---
Examination: Biophysical profile, ultrasound Date and time of exam: May 15, 2025, 1243 hours INDICATIONS: Limited care, decreased movement today Technique: Multiple transabdominal sonographic images of the pelvis abdomen obtained. Attention is directed to the breathing movement, gross body movement, amniotic fluid volume and tone. Findings: Amniotic fluid index 19.8 cm Total biophysical profile is 8 of 8. breathing movement is 2. Gross body movement is 2. tone is 2. Qualitative amniotic fluid volume is 2 Impression: Biophysical profile is 8 of 8.
[2025-05-15] MEDS: cefTRIAXone 2 GM in SODIUM CHLORIDE 0.9% (Popper) 50 ML IV (13:36)
--- NOTE | 2025-05-15 13:52 | XR_ITS ---
Examination: Complete OB ultrasound greater than 14 weeks Date and time of exam: May 15, 2025, 1544 hours INDICATIONS: Labor evaluation today, limited care, diagnosis diabetes Findings: Viable intrauterine single fetus with single amniotic sac presentation transverse, head maternal right spine posterior Cardiac motion 153 bpm Placenta posterior fundal grade 2 Umbilical cord insertion 3 vessel seen Amniotic fluid index 24.6 cm Ovaries obscured by the fetus. Composite estimated gestational age based on BPD, head circumference, abdominal circumference, femur length is 39 weeks 0 days Estimated weight 3831 g. Survey of intracranial anatomy, spinal anatomy, abdominal anatomy, four-chamber heart performed with no abnormalities identified. Impression: Viable intrauterine gestation in transverse presentation.
[2025-05-15 15:33] LABS: Thyroid Stimulating Hormone 5.85 uIU/mL (0.55-4.78)
--- NOTE | 2025-05-15 16:42 | XR_ITS ---
Examination: Abdomen sonogram, Limited Date and time of exam: May 15, 2025, 1521 hours INDICATIONS: Abdominal pain today Technique: Real-time royal scale transabdominal sonographic images of the upper abdomen obtained. Findings: Absent gallbladder Common bile duct 0.4 cm no stones Pancreatic head 3.5 cm Liver 19.7 cm fatty infiltration Normal hepatopetal portal venous flow Patent IVC IMPRESSION: No common bile duct stones Moderate hepatomegaly fatty infiltration
[2025-05-15] MEDS: INSULIN LISPRO (AdmeLOG) 1 UNIT/0.01 ML UNIT 5 UNIT SC (17:18)
[2025-05-15] MEDS: INSULIN DEGLUDEC 5 UNIT/0.05 ML (PER 5 UNITS) 10 UNIT SC (20:15)
--- NOTE | 2025-05-15 21:26 | PD.LDANTE ---
Documentation for date of: 05/15/25 OB Labor/Induct. HPI History of Present Illness Chief complaint: Contractions and pressure : 7 Para: 1 Term pregnancies: 1 pregnancies: 0 Living children: 1 History of Abortions: Spontaneous and Elective: 5 History of Vaginal deliveries: 1 History of sections: No History of : Yes LILIANA: 06/04/25 Gestational Age (weeks): 37 Gestational Age (days): 2 History of present illness: Patient is a 35-year-old male 7 para 1-0-5-1 who presented to labor and delivery triage with multiple complaints. Patient received care elsewhere in [facility]. Patient did bring in some records with her. Her due date is June 04, 2025 as per an [facility] ultrasound that she has with her. Patient has a history of type I DM on insulin, type I DM with age at onset at 17 years and patient was under the care at [facility] when she was in her pediatric age group. Patient has a history of scoliosis, hypothyroidism on levothyroxine and elevated BMI. Patient reports intermittent contractions, she denies any leakage of fluid or vaginal bleeding. Patient also reports that recently she was diagnosed with pancreatitis which is now resolving. History of Present Adequate Care: Yes Labs Labs: Positive: Rubella Titre and Group Beta Strep, Negative: RPR, Hepatitis B, HIV, Chlamydia and Gonorrhea and Unknown: Herpes Type 1, Herpes Type 2 and Covid-19 Review of Systems Review of Systems Systems Reviewed: All systems reviewed, normal except as documented Past Medical History Surgical History SURGICAL: Negative Section Meds Home Medications and Allergies Home Medications ?Medication ?Instructions ?Recorded ?Confirmed ?Type aspirin 81 mg tablet,delayed 81 mg PO QDAY 03/03/25 03/03/25 History release (Adult Aspirin Regimen) levothyroxine 150 mcg tablet 150 mcg PO .QD 03/03/25 03/03/25 History Allergies Allergy/AdvReac Type Severity Reaction Status Date / Time chicken derived Allergy Severe Swelling Verified 04/05/25 17:35 of Lip/Tongue/Throat turkey Allergy Severe Swelling Verified 04/05/25 17:35 of Lip/Tongue/Throat pepperoni Allergy Intermediate Rash Uncoded 03/03/25 14:26 OB Exam Physical Exam Vital signs: Temp Pulse Resp BP Pulse Ox 98.3 F 107 H 18 112/69 97 05/15/25 19:43 05/15/25 20:35 05/15/25 19:43 05/15/25 20:35 05/15/25 21:25 Constitutional Constitutional: no acute distress Routine HEENT Exam Head: Present normocephalic and atraumatic Eye: Present EOMI and PERRL ENT: Present mucous membranes moist Routine Neck Exam Neck: Present supple and trachea midline Routine Cardiovascular Exam Cardiovascular: Present RRR Routine Abdominal Exam Abdominal: Present soft and normoactive bowel sounds Detailed Labor and Delivery Exam Dilation (cm): 0 Effacement (%): 0 Cervix position: mid station: -4 Consistency: firm Presentation: Transverse Baseline heart rate: 145 monitor accelerations: 15x15 monitor decelerations: None Routine Extremities Exam Extremities: Present full ROM Routine Skin Exam Skin: Present intact, dry and warm Routine Neurological Exam Neurological: Present alert, oriented X3 and CN II-XII intact Routine Psychiatric Exam Psychiatric: Present normal affect and normal thought process OB Results Labs 05/15/25 11:21 05/15/25 11:15 Labs: Short CBC 05/15/25 Range/Units 11:21 WBC 11.4 H (3.6-11.0) Thou/mm3 Hgb 12.1 (12.0-16.0) g/dL Hct 36.9 (36.0-46.0) % Plt Count 308 (140-440) Thou/mm3 [facility] 05/15/25 11:15 Sodium 137 Potassium 4.3 Chloride 106 Carbon Dioxide 18.5 L BUN 7 L Creatinine 0.5 L Glucose 159 H Calcium 8.7 Liver Function 05/15/25 Range/Units 11:15 Total Bilirubin 0.2 L (0.3-1.2) mg/dL AST 13 (0-34) U/L ALT 7 L (10-49) U/L Alkaline Phosphatase 125 H (46-116) U/L Albumin 4.2 (3.5-5.0) gm/dL Urine 05/15/25 Range/Units 11:21 Urine Color Yellow (Lt Yel-Yel) Urine Clarity Hazy (Clear/Hazy) Urine pH 6.0 (5.0-7.0) Ur Specific [place] 1.014 (1.001-1.035) Urine Protein Trace (Neg - Trace) Urine Glucose (UA) 1+ A (Negative) OB Assessment & Plan Assessment and Plan (1) Hypothyroidism affecting : Status: Acute (2) Type 1 diabetes mellitus affecting in third trimester, antepartum: Status: Acute Assessment and plan: Admit patient to inpatient status Admission labs to include CBC CMP ketone panel RPR and type and screen Will initiate her on a combination of long-acting and short acting insulin. Lantus 10 units nightly and Humalog 5 units prior to meals. Will titrate glucose depending on glycemic levels Patient has elevated TSH of 5.4. Will increase her levothyroxine to 175. The goal is to achieve euglycemic status, patient might need to be delivered because she is 37 weeks plus with insulin-dependent type 1 DM presentation is transverse, patient will require delivery via . Patient was made aware. (3) Hypothyroidism affecting in third trimester: Status: Acute (4) Scoliosis: Status: Acute (5) Transverse or oblique presentation: Status: Acute
[2025-05-15] MEDS: ACETAMINOPHEN 325 MG TABLET 650 MG PO (21:36)
[2025-05-16] VITALS (201 sets, daily range): BP systolic 0–127; BP diastolic 0–79; PULSE 84–114; RESP 16–18; TEMP 36.5–36.9; O2SAT 82–99
[2025-05-16] MEDS: SODIUM CHLORIDE 0.9% 1000 ML 1,000 ML 125 ML IV ×2 (02:08→10:30)
[2025-05-16] MEDS: INSULIN LISPRO (AdmeLOG) 1 UNIT/0.01 ML UNIT 5 UNIT SC ×3 (07:36→17:14)
[2025-05-16] MEDS: LEVOTHYROXINE SODIUM 125 MCG, LEVOTHYROXINE SODIUM 50 MCG 175 MCG PO (07:50)
[2025-05-16] MEDS: INSULIN DEGLUDEC 5 UNIT/0.05 ML (PER 5 UNITS) 10 UNIT SC (09:23)
--- NOTE | 2025-05-16 09:30 | PC.NURSE ---
public policy professor CINDY called pharmacy. Pt. has not eaten since fasting BS taken this morning with a value of 123. Pt. to receive long action insulin now. Per pharmacy okay to enter same previous blood glucose level as fasting for administration.
[2025-05-16 10:14] LABS: Glucose Estimated Average 177 mg/dL (80-131); Hemoglobin A1C 7.8 % Hgb (4.8-6.0)
--- NOTE | 2025-05-16 16:22 | ESPR_ITS ---
Subjective Subjective Interval history: Patient is a 35-year-old male 7 para 1-0-5-1 who presented to labor and delivery triage with multiple complaints. Patient received care elsewhere in [facility]. Patient did bring in some records with her. Her due date is June 04, 2025 as per an [facility] ultrasound that she has with her. Patient has a history of type I DM on insulin, type I DM with age at onset at 17 years and patient was under the care at [facility] when she was in her pediatric age group. Patient has a history of scoliosis, hypothyroidism on levothyroxine and elevated BMI. Patient reports intermittent contractions, she denies any leakage of fluid or vaginal bleeding. Patient also reports that recently she was diagnosed with pancreatitis which is now resolving. Exam Vital Signs Temp Pulse Resp BP Pulse Ox O2 Del Method 98.5 F 98 16 0/0 L 98 Room Air 05/16/25 16:16 05/16/25 10:04 05/16/25 16:16 05/16/25 10:33 05/16/25 16:12 05/16/25 08:06 Narrative Exam Alert and oriented x 3 no shortness of breath Pain no chest pain no palpitations Chest clear bilaterally no additional sounds, no wheezing no rales CVS regular rate and rhythm No CVAT Abdomen nontender, normal bowel sounds No guarding no rigidity No hernias Size > to dates uterus non tender Occasional/ contractions non tender FHR is category 1 feta presentation is transverse by US yestarday Urinary Catheter Management Cath placed during this visit: no Assessment & Plan Problems (1) Hypothyroidism affecting : Problem details: patient on levothyroxine 150 mcg q daily Status: Acute (2) Type 1 diabetes mellitus affecting in third trimester, antepartum: Problem details: patient states diagnosed with DM at age 16 her Hb A1c was 7.1 in November 2024/ she is a at 37.2 weeks / transverse lie / poorly controlled DM / Plan Primary LTCS tomorrow / Patient given risks and benefits and options / Plan US in am to check lie again Status: Acute (3) Hypothyroidism affecting in third trimester: Status: Acute (4) Scoliosis: Problem details: has had surgery for it Status: Acute (5) Transverse or oblique presentation: Problem details: repeat US in am and if still transverse plan c section delivery due to poorly controlled DM2at 37 .3 weeks tomorrow / R/B and options of c section now vs waiting and also risks of surgery and benefits of C section delivery d/w patient . She is ok with blood transfusion if needed and I answered all her questions Status: Acute Time Spent With Patient Time with patient: 25 - 35 minutes Objective Labs 05/17/25 05:20 05/17/25 05:20 Labs: Laboratory Results - last 24 hr 05/15/25 05/16/25 15:46 09:[address] Glu mg/dL 177 H Hemoglobin A1c 7.8 H Blood Type A Positive Antibody Screen NEGATIVE
[2025-05-16] MEDS: RINGERS LACTATED 1000 ML 1,000 ML 999 ML IV (18:15)
[2025-05-17] VITALS (16 sets, daily range): BP systolic 0–141; BP diastolic 0–88; PULSE 74–103; RESP 14–22; TEMP 36.6–36.8; O2SAT 98–100
[2025-05-17 05:36] LABS: Basophils # (Auto) 0.0 Thou/mm3 (0.0-0.2); Basophils % (Auto) 0 % (0-2.5); Eosinophils # (Auto) 0.2 Thou/mm3 (0.0-0.5); Eosinophils % (Auto) 2 % (0-10); Hematocrit 31.9 % (36.0-46.0); Hemoglobin 10.3 g/dL (12.0-16.0); Immature Granulocytes Auto 0.02 Thou/mm3 (0.00-0.00); Lymphocytes # (Auto) 2.0 Thou/mm3 (1.0-4.8); Lymphocytes % (Auto) 22 % (10-50); Mean Corpuscular HGB Conc 32.3 g/dl (31.0-37.0); Mean Corpuscular Hemoglobin 25.4 pg (25.0-35.0); Mean Corpuscular Volume 79 fL (80-100); Monocytes # (Auto) 0.6 Thou/mm3 (0.0-0.8); Monocytes % (Auto) 6 % (0-12); Neutrophils # (Auto) 6.5 Thou/mm3 (1.8-7.7); Neutrophils % (Auto) 70 % (37-80); Nucleated Red Blood Cell # 0.00 Thou/mm3 (0.00-0.00); Nucleated Red Blood Cell % 0 /100 WBC (0); Platelet Count 229 Thou/mm3 (140-440); RDW Standard Deviation 44.7 fL (36.4-46.3); Red Blood Count 4.05 Miln/mm3 (4.00-5.20); White Blood Count 9.4 Thou/mm3 (3.6-11.0)
[2025-05-17 06:21] LABS: Albumin, Serum 3.5 gm/dL (3.5-5.0); Anion Gap 10 (7-16); BUN/Creatinine Ratio 12 Ratio (12-20); Blood Urea Nitrogen 6 mg/dL (9-23); Calcium 8.3 mg/dL (8.3-10.6); Calcium (Corrected) 8.7 mg/dL (8.5-10.1); Carbon Dioxide 20.7 mMol/L (20.0-31.0); Chloride 109 mMol/L (98-107); Creatinine (Component) 0.5 mg/dL (0.6-1.3); Estimated Creatinine Clearance 188.3 mL/min (>60); Glucose 158 mg/dL (74-106); Osmolality,Calculated 280 (275-295); Phosphorous 4.1 mg/dL (2.4-5.1); Potassium 3.7 mMol/L (3.4-5.1); Sodium 140 mMol/L (136-145); Thyroid Stimulating Hormone 4.32 uIU/mL (0.55-4.78); eGFR > 60 See Note
[2025-05-17] MEDS: LEVOTHYROXINE SODIUM 125 MCG, LEVOTHYROXINE SODIUM 50 MCG 175 MCG PO (07:20)
[2025-05-17] MEDS: INSULIN LISPRO (AdmeLOG) 1 UNIT/0.01 ML UNIT 5 UNIT SC (07:30)
--- NOTE | 2025-05-17 08:00 | XR_ITS ---
EXAMINATION: age Limited TECHNIQUE: Limited transabdominal sonographic images pelvis May 19, 2002 5, 0920 hours INDICATIONS: Unknown presentation, today. FINDINGS: Viable intrauterine gestation in breech presentation spine maternal left head maternal right Cardiac motion 150 bpm IMPRESSION: Viable intrauterine gestation in breech presentation
[2025-05-17] MEDS: INSULIN DEGLUDEC 5 UNIT/0.05 ML (PER 5 UNITS) 10 UNIT SC (09:03)
[2025-05-17] MEDS: RINGERS LACTATED 1000 ML 1,000 ML 125 ML IV ×2 (11:00→12:02)
[2025-05-17] MEDS: ceFAZolin/D5W 2 GM IV 2 GM/100 ML BAG IV ×2 (12:25→18:20)
[2025-05-17] MEDS: FAMOTIDINE INJ 10 MG/ML VIAL 2 ML 20 MG IV (12:26)
[2025-05-17] MEDS: METOCLOPRAMIDE INJ 5 MG/ML VIAL 2 ML 10 MG IVP (12:26)
[2025-05-17] MEDS: ceFAZolin/D5W 1 GM IVPB 1 GM/50 ML BAG IV (13:01)
--- NOTE | 2025-05-17 13:54 | ESOP_ITS ---
Operative Note - [employer] Procedure Date of procedure: 05/17/25 Procedure Performed: Primary LTCS Indication: 37,2 weeks with breech presentation and poorly controlled Pregestational DM 1 in a G7 Pi Hypothyroidism and obesity Pre-Op diagnosis: as above Post-Op diagnosis: same , oblique lie / unstable lie Anesthesia type: Spinal Procedure description: Patient was given the reason for proceeding with surgery. She was given the risk benefits and options. She chose to proceed with the surgery. Risks of surgery to include risk of infection bleeding, possible injury to the surrounding organs like the urinary bladder, intestines, ureter, uterus, tubes, ovaries, nerves, blood vessels, possible risk of wound dehiscence later on or hernia development later on in future. However the surgery is done when the benefits outweigh the risks Possible risks of blood transfusion and options were also discussed. All questions answered Patient willing to proceed with surgery. After an informed consent patient was taken to the operating room, she was prepped and draped in the usual sterile fashion after receiving spinal anesthesia. A timeout was done. Surgical site infection prophylaxis was given Harper was in place and draining clear urine SCDs were in place After verification of adequacy of anesthesia, a Pfannansteil incision was made 2 cm above the symphysis pubis and carried laterally on the skin and it was carried down to subcutaneous tissue and then to the rectus fascia, the rectus fascia was from underlying muscles by sharp and blunt dissection Peritoneal cavity was entered atraumatically A Ellis retractor placed superiorly, and a bladder blade inferiorly/ and these were removed to accommodate the extra large Rich Lower uterine segment was well-formed Incision made in the lower uterine segment, and amniotic sac ruptured, clear and copious amniotic fluid Baby was presenting as R oblique and was delivered as cephalic Cord clamped and cut and baby received by the waiting nursery team Cord blood collected, placenta removed spontaneously Uterine cavity clean dry of any remaining membranes with a dry lap, uterine incision closed with the help of 0 Monocryl in 2 layers in a running , interlocking fashion . Hemostasis is good Uterus is firm Both tubes and ovaries look normal Instrument needle and sponge count is correct, hemostasis was checked for again on the uterine incision and it is confirmed Peritoneal closure done with 2-0 Vicryl Rectus abdominis muscles approximated with 2-0 Vicryl Rectus fascia approximated with 0 monocryl running sutures Subcutaneous tissue irrigated closed with and approximated with 3-0 plain catgut Skin approximated with 4-0 Monocryl Tape dressing applied with Dermabond ABD dressing placed on top Harper is draining clear urine EBL is 650 cc Patient delivered a liveborn male Apgars are as noted . Surgical staff Operation Date: 05/17/25 12:55 Case Staff PIERCER OPERATOR: Jean-Claude Jamil RNcoil wrapper: Huyen Crowley Diagnosis Problem List Completed Was Problem List Reviewed/Reconciled?: Yes
[2025-05-17] MEDS: HYDROcodone/APAP 5/325 TABLET 2 TAB PO (18:23)
[2025-05-17] MEDS: OXYTOCIN in NS 20 units 20 UNIT/1,000 ML BAG 125 UNIT IV (19:44)
[2025-05-18 00:03] VITALS: BP 123/82; PULSE 94; RESP 17; TEMP 36.4; O2SAT 98
[2025-05-18] MEDS: IBUPROFEN TAB 400 MG TABLET 800 MG PO (02:05)
[2025-05-18] MEDS: ceFAZolin/D5W 2 GM IV 2 GM/100 ML BAG IV ×2 (02:06→09:46)
[2025-05-18 04:38] VITALS: BP 105/70; PULSE 88; RESP 19; TEMP 36.7; O2SAT 98
[2025-05-18] MEDS: RINGERS LACTATED 1000 ML 1,000 ML 125 ML IV (04:42)
[2025-05-18 05:38] LABS: Basophils # (Auto) 0.0 Thou/mm3 (0.0-0.2); Basophils % (Auto) 0 % (0-2.5); Eosinophils # (Auto) 0.2 Thou/mm3 (0.0-0.5); Eosinophils % (Auto) 2 % (0-10); Hematocrit 29.8 % (36.0-46.0); Hemoglobin 9.5 g/dL (12.0-16.0); Immature Granulocytes Auto 0.04 Thou/mm3 (0.00-0.00); Lymphocytes # (Auto) 1.6 Thou/mm3 (1.0-4.8); Lymphocytes % (Auto) 15 % (10-50); Mean Corpuscular HGB Conc 31.9 g/dl (31.0-37.0); Mean Corpuscular Hemoglobin 24.9 pg (25.0-35.0); Mean Corpuscular Volume 78 fL (80-100); Monocytes # (Auto) 0.7 Thou/mm3 (0.0-0.8); Monocytes % (Auto) 7 % (0-12); Neutrophils # (Auto) 7.9 Thou/mm3 (1.8-7.7); Neutrophils % (Auto) 76 % (37-80); Nucleated Red Blood Cell # 0.00 Thou/mm3 (0.00-0.00); Nucleated Red Blood Cell % 0 /100 WBC (0); Platelet Count 191 Thou/mm3 (140-440); RDW Standard Deviation 43.5 fL (36.4-46.3); Red Blood Count 3.81 Miln/mm3 (4.00-5.20); White Blood Count 10.4 Thou/mm3 (3.6-11.0)
[2025-05-18] MEDS: LEVOTHYROXINE SODIUM 125 MCG, LEVOTHYROXINE SODIUM 50 MCG 175 MCG PO (06:08)
[2025-05-18 08:10] VITALS: BP 102/68; PULSE 87; RESP 16; TEMP 36.8; O2SAT 99
[2025-05-18] MEDS: INSULIN DEGLUDEC 5 UNIT/0.05 ML (PER 5 UNITS) 10 UNIT SC (09:43)
[2025-05-18] MEDS: HYDROcodone/APAP 5/325 TABLET 2 TAB PO ×3 (09:46→23:34)
[2025-05-18 12:00] VITALS: BP 121/77; PULSE 90; RESP 16; TEMP 37; O2SAT 97
--- NOTE | 2025-05-18 20:47 | PD.LDPPPRG ---
Subjective Subjective Interval history: The patient is a 35-year-old -0-0-1 history of vaginal debris x 1 in the past postop day #1 status post primary section by Dr. Dickens 05/17/2025 at approximately 1400. This was done at 37-3/7 weeks for oblique lie. The patient has been an insulin requiring diabetic since age 17. She is also hypothyroid. Her hemoglobin A1c on admission is 7.8. Tonight the patient is resting comfortably. She is up voiding and tolerating a general diet. She is passing flatus. She states she has burning with her incision we did discuss pain control. The patient is anxious to leave tomorrow as the baby has been transferred to [facility] due to difficulty maintaining his oxygen saturations. She states the baby has been given surfactant and is doing better. She is interested in pumping. She would like to talk to a ad operations specialist in the morning. The father of the baby is at bedside. Exam Vital Signs Temp Pulse Resp BP Pulse Ox O2 Del Method 98.6 F 90 16 121/77 97 Room Air 05/18/25 12:00 05/18/25 12:00 05/18/25 12:00 05/18/25 12:00 05/18/25 12:00 05/18/25 12:00 Narrative Exam Patient is alert and orient x 3 in no apparent distress. Abdomen is obese fundus is firm at umbilicus incision clean dry and intact extremities show no significant edema or erythema Objective Labs 05/18/25 05:00 05/17/25 05:20 Labs: Laboratory Results - last 24 hr 05/18/25 05:00 WBC 10.4 RBC 3.81 L Hgb 9.5 L Hct 29.8 L MCV 78 L MCH 24.9 L MCHC 31.9 RDW Std Deviation 43.5 Plt Count 191 D Neut % (Auto) 76 Lymph % (Auto) 15 Reynolds % (Auto) 7 Eos % (Auto) 2 Baso % (Auto) 0 Neut # (Auto) 7.9 H Lymph # (Auto) 1.6 Reynolds # (Auto) 0.7 Eos # (Auto) 0.2 Baso # (Auto) 0.0 Immature Gran # (Auto) 0.04 H Absolute Nucleated RBC 0.00 Immature Gran % 0 Nucleated RBC % 0 Assessment & Plan Problem List (1) Hypothyroidism affecting : Problem details: patient on levothyroxine 150 mcg q daily Status: Acute (2) Type 1 diabetes mellitus affecting in third trimester, antepartum: Problem details: patient states diagnosed with DM at age 16 her Hb A1c was 7.1 in November 2024 hemoglobin A1c 7.8 this admission. On insulin. Status: Acute (3) Scoliosis: Problem details: has had surgery for it Status: Acute (4) care following delivery: Problem details: Ambulate. P.o. pain medications as tolerated. consulted in the morning. Patient needs a social work consult due to multiple social issues. Probable discharge later tomorrow afternoon. Status: Acute Time Spent With Patient Time: Total time spent is greater than 50% in coordination of care (as documented) at patient's floor/unit and/or counseling patient: Time with patient: less than 15 minutes
[2025-05-19 04:30] VITALS: BP 122/79; PULSE 86; RESP 18; O2SAT 98
[2025-05-19] MEDS: LEVOTHYROXINE SODIUM 125 MCG, LEVOTHYROXINE SODIUM 50 MCG 175 MCG PO (06:07)
[2025-05-19] MEDS: HYDROcodone/APAP 5/325 TABLET 1 TAB PO (07:35)
[2025-05-19 08:00] VITALS: BP 104/71; PULSE 90; RESP 18; TEMP 36.8; O2SAT 97
[2025-05-19] MEDS: INSULIN DEGLUDEC 5 UNIT/0.05 ML (PER 5 UNITS) 10 UNIT SC (09:21)
--- NOTE | 2025-05-19 09:42 | ESPR_ITS ---
Subjective Subjective Interval history: The patient is a 35-year-old -0-5-2 status post primary low-transverse section by Dr. Dickens 05/17/2025 at about 1400. She underwent a C - section for an unstable lie with an oblique presentation. Patient is postoperative day #2 today. She is doing well and she is motivated to go home. She states her infant was transferred to [facility] with some difficulty breathing. He has been given surfactant and they are trying to wean him off the oxygen. She is pumping her breastmilk and is awaiting a social work consult. She is reporting passing a couple clots last night but otherwise her lochia has been minimal.Her pain is controlled with oral pain medications. She is ambulating and tolerating a general diet. She would like a Dexcom transmitter ordered from the pharmacy if possible. She states she has the sensors. She also would like insulin to go home and her meds refilled. She is moving with her significant other to [place]. Patient is diet diabetic since age 17. She is voiding and passing flatus and tolerating it regular diabetic diet. Exam Vital Signs Temp Pulse Resp BP Pulse Ox O2 Del Method 98.2 F 90 18 104/71 97 Room Air 05/19/25 08:00 05/19/25 08:00 05/19/25 08:00 05/19/25 08:00 05/19/25 08:00 05/19/25 08:00 Narrative Exam Patient is alert and orient x 3 in no apparent distress. Fundus is firm nontender incisions clean dry and intact extremities show no significant edema or erythema. Objective Labs 05/18/25 05:00 05/17/25 05:20 Assessment & Plan Problem List (1) Hypothyroidism affecting : Problem details: patient on levothyroxine 150 mcg q daily Status: Acute (2) Type 1 diabetes mellitus affecting in third trimester, antepartum: Problem details: patient states diagnosed with DM at age 16 her Hb A1c was 7.1 in November 2024 hemoglobin A1c 7.8 this admission. On insulin. Status: Acute (3) Scoliosis: Problem details: has had surgery for it Status: Acute (4) care following delivery: Problem details: Ambulate. P.o. pain medications as tolerated. Patient needs a social work consult due to multiple social issues. Probable discharge later this afternoon. Status: Acute Time Spent With Patient Time: Total time spent is greater than 50% in coordination of care (as documented) at patient's floor/unit and/or counseling patient: Time with patient: less than 15 minutes
--- NOTE | 2025-05-19 09:47 | ESDS_ITS ---
DS: Providers Provider Date of admission: 05/16/25 09:40 Primary care physician: Physician No Primary/Family Admitting Provider: Martinez Donis MD Attending Provider on Admission: Martinez Donis MD Consults: 05/17/25 15:29 Referral Routine Comment: Attending Provider on DC: Ute Lance MD ([facility]) Discharging Provider: Ute Lance MD ([facility]) Anticipated date of discharge: 05/19/25 DS: Diagnosis Discharge Diagnosis (1) care following delivery: Status: Acute Assessment & Plan: Discharge instructions given. Discharged home postoperative day #2 in stable condition. (2) Transverse or oblique presentation: Status: Acute (3) Hypothyroidism affecting : Status: Acute (4) Scoliosis: Status: Acute (5) Type 1 diabetes mellitus affecting in third trimester, antepartum: Status: Acute Assessment & Plan: Home on insulin. Follow-up with primary care. I will try to refill her Dexcom transmitter. Problem List Completed Was Problem List Reviewed/Reconciled?: Yes Summary/Hosp Course Brief History: Patient is a 35-year-old male 7 para 1-0-5-1 who presented to labor and delivery triage with multiple complaints. Patient received care elsewhere in [facility]. Patient did bring in some records with her. Her due date is June 04, 2025 as per an [facility] ultrasound that she has with her. Patient has a history of type I DM on insulin, type I DM with age at onset at 17 years and patient was under the care at [facility] when she was in her pediatric age group. Patient has a history of scoliosis, hypothyroidism on levothyroxine and elevated BMI. Patient reports intermittent contractions, she denies any leakage of fluid or vaginal bleeding. Patient also reports that recently she was diagnosed with pancreatitis which is now resolving. The patient was admitted by Dr. Dickens. Please see history and physical for further details Hospital course: Patient was admitted. The baby was found to be in an oblique lie. She underwent a primary low-transverse section 05/17/[address] Dickens. Please see op report for further details. Her postoperative course was uncomplicated. Her predelivery hemoglobin was 12.1. Postdelivery hemoglobin 9.5. Her vital signs were stable. By postoperative day #2, the patient was voiding, ambulating, tolerating a general diet, passing flatus and having bowel movements. Her pain was controlled with p.o. pain medications. Her lochia was mild. She was discharged home postoperative day #2 in stable condition. Discharge instructions included no heavy lifting intercourse tampons douching or exercise x 6 weeks. Follow-up with an MD in [place] in 1 to 2 weeks for a wound check. Peripartum Data Delivery Method: Low Transverse Episiotomy Description: None Procedures: Procedures Operation Date: 05/17/25 12:55 Actual Procedure Side Surgeon p in OR Judy Dickens MD complications: none Status at Discharge Cognitive/behavioral status at discharge: Patient is alert and orient x 3 in no apparent distress Functional status at discharge: independent ambulation Overall status at discharge: patient is progressing back to baseline Time Spent with Patient Time attestation: Total time spent providing and/or coordinating discharge services: Time spent: Less than 30 minutes Specific discharge activities: No heavy lifting intercourse tampons or douching x 6 weeks, no exercise x 6 weeks. Exam Vital Signs Temp Pulse Resp BP Pulse Ox O2 Del Method 98.2 F 90 18 104/71 97 Room Air 05/19/25 08:00 05/19/25 08:00 05/19/25 08:00 05/19/25 08:00 05/19/25 08:00 05/19/25 08:00 Narrative Exam Patient is alert and orient x 3 no apparent distress. Fundus is firm at umbilicus. Incision is clean dry and intact. Extremities show no significant edema or erythema. Discharge Plan Plan Patient Disposition: HOME (Self Care) Disposition Comment: Stable Patient condition on transfer: Stable Prescriptions/Referrals Prescriptions/Med Rec: New levothyroxine 175 mcg Tablet 175 mcg PO ACBR Qty: 60 0RF acetaminophen 325 mg Tablet 650 mg PO Q6HR PRN (Reason: Patient rated pain of 3) Qty: 60 0RF hydrocodone-acetaminophen 5-325 mg Tablet 2 tab PO Q6HR MDD 4 PRN (Reason: Patient rated pain 9 to 10) Qty: 25 0RF Humulin R Regular U-100 Insuln 100 unit/mL Solution 0 unit SCi Q6HR Qty: 30 0RF ibuprofen 400 mg Tablet 800 mg PO Q8HR PRN (Reason: Pain Scale 4-6 (Moderate) Qty: 60 0RF insulin degludec 100 unit/mL Solution 10 unit SCi QDAY Qty: 30 0RF Continued levothyroxine 150 mcg tablet 150 mcg PO .QD Classic 28 mg iron- 800 mcg tablet 1 tab PO QDAY 90 Days Qty: 90 6RF (DME) Blood Glucose Test Strip See Rx Instructions .Route Qty: 50 0RF Rx Instructions: As directed, 4 times a day (DME) lancets Misc See Rx Instructions .Route Qty: 200 0RF Rx Instructions: As directed 4 times a day (DME) blood-glucose meter Kit See Rx Instructions .Route Qty: 1 0RF Rx Instructions: As directed, 4 times a day tioconazole [1-Day] 6.5 % ointment 1 ea .Route QDAY Qty: 4.6 0RF Rx Instructions: 1 application Discontinued aspirin [Adult Aspirin Regimen] 81 mg tablet,delayed release (DR/EC) 81 mg PO QDAY Referrals: No Primary/Family,Physician [Primary Care Provider] Patient/Caregiver Discharge Instructions Discharge Activity: activity as tolerated Other Discharge Activity Instructions:: No heavy lifting intercourse tampons douching or heavy exercise x 6 weeks. Follow-up with a doctor in [place] in 1 to 2 weeks. Other Discharge Diet Instructions: Diabetic diet as tolerated Education Materials: Common Thyroid Problems, After Delivery Concerns, Breast Care After , Nutrition While , Understanding Scoliosis, : Caring for Yourself, C Section Dc, Delivery After Stay Fit, Preventing Surgical Site Infections Print Language: Danish Activity Restrictions/Additional Instructions: Go to the closest ER for severe depression or heavy bleeding. Go for wound concerns or fevers. Control blood sugars carefully. Stand Alone Forms: Tamara Award Info., Patient Portal Info Letter Discharge Order Discharge Orders: Discharge (Routine); Ordered 05/19/25 Ordered By: Ute Lance ([facility]) Planned Discharge Date 05/19/25 (2) Transverse or oblique presentation Qualifiers: Fetus number: single or unspecified fetus Qualified Code(s): O32.2XX0 - Maternal care for transverse and oblique lie, not applicable or unspecified (3) Hypothyroidism affecting Qualifiers: Trimester: third trimester Qualified Code(s): O99.283 - Endocrine, nutritional and metabolic diseases complicating , third trimester; E03.9 - Hypothyroidism, unspecified (4) Scoliosis Qualifiers: Scoliosis type: unspecified scoliosis Spinal region: unspecified Qualified Code(s): M41.9 - Scoliosis, unspecified
--- NOTE | 2025-05-19 10:55 | PC.SS ---
SS conducted bedside contact with the patient to address nursing referral indicating patient having hx of depression. SS introduced self and role.? At bedside with patient was Florian PHIPPS. Patient reports she will be moving with FOB to [place] upon discharging. She Patient denies HX of Mental health. ?Patient reports compliance with OB appointments.? Patient plans to bottle feed, since at the time [facility] Patient is aligned with WIC, TANF, and SNAP. Patient denies history of alcohol/drug abuse.? Patient denies episodes of domestic violence. Patient has access to appropriate supplies and equipment. Patient reports this is her second child and her first child is a 16 months old. ?[facility]B will provide transportation upon discharge.? Patient describes possessing support system of her ?s family.? Patient does not have any CWS open cases patient. Patient reports she will be following up with finding a information systems planner in [place]. Patient followed up with OBGYN services in [facility] at [facility]. SS provided community resources to include [employer] [facility] and other community resources.? No further intervention required at this time, social science professor would be available to address any further concerns.? SS updated bedside nurse.
--- NOTE | 2025-06-11 12:27 | OBDSUM_ITS ---
Data (Heard) Data Hx Section: No : 8 Term: 1 : 0 Livin Abortions: Spontaneous & Theraputic: 5 Delivery Data (Heard) Labor Data Initiation of labor: Spontaneous Induction/Augmentation Agent: None ROM date: 05/17/25 ROM time: Amniotic membrane rupture type: Artificial Amniotic fluid description: Clear Delivery Data delivery date: 05/17/25 Burchard delivery time: Placenta delivery date: 05/17/25 Placenta delivery time: Delivered by: dr li Delivery nurse: jordan Garcia nurse: sachi avina Messenger Floorperson at delivery: No Support person(s) at delivery: fob Delivery Method Delivery method: Low Transverse Presentation: Vertex Anesthesia Type Anesthesia Type: Spinal Anesthesia type: Spinal Placenta Placenta delivery description: Manual Removal Cord blood sent to lab: Yes cord blood collection: Cord Blood Type Episiotomy Episiotomy description: None Umbilical Cord cord description: 3 Vessels Burchard Data (Heard) Burchard Data order: 1 Burchard's gender: Male Identification band number: [id number] weight (gms): 4270 g Weight (pounds): 9 lbs and 6.6 ozs Burchard length: 52 cm 1 minute: 1 5 minutes: 7
== END 2025-05-19 11:14 | disposition home or self-care (01) | DRG 540 ==
LOC: S4SX 05-17 12:13 → S4NX 05-17 13:00
PROVIDERS: Obstetrics & Gynecology; Admitting Provider Obstetrics & Gynecology; Visit Provider Obstetrics & Gynecology
PROC: 10D00Z1 Extraction of Products of Conception, Low, Open Approach (ICD-10-PCS; CPT 59514; principal; 2025-05-17 12:30)
DX: O32.1XX0 Maternal care for breech presentation, not applicable or unspecified (principal); O24.02 Pre-existing type 1 diabetes mellitus, in childbirth; O99.284 Endocrine, nutritional and metabolic diseases complicating childbirth; E03.9 Hypothyroidism, unspecified; M41.9 Scoliosis, unspecified; O32.2XX0 Maternal care for transverse and oblique lie, not applicable or unspecified; Z37.0 Single live birth; Z3A.37 37 weeks gestation of pregnancy
CPT/HCPCS: 36415; 59025; 59899; 76705; 76805; 76815; 76819; 80053; 80069; 80307; 81001; 83036; 84443; 85025; 86780; 86850; 86900; 86901; 94762; A4217; A4314; A4649; J0689; J0696; J1815; J2250; J2274; J2590; J2765; J3010; J3490; J7030; J7050; J7120; A9270; J2270